=== PATIENT | female | born 1940 | race Asian ===

== ENCOUNTER → 2017-11-17 16:13 | Outpatient (CLI) | payer MEDICARE, OTHER, SELFPAY ==
--- NOTE | 2017-11-17 | DI.MRI.S_ITS ---
PROCEDURE: MR HEAD/BRAIN W/O CON INDICATIONS: HEADACHE TECHNIQUE: Noncontrast sagittal and axial FLAIR, axial and coronal T2 fast spin echo, axial T1, axial gradient echo, axial diffusion and ADC through the brain. . COMPARISON: None. FINDINGS: Image quality: Excellent. CSF spaces: Ventricles are normal in size and shape. Basal cisterns are patent. No extra-axial fluid collections. Brain: No intracranial bleeds or mass effects. Wood-white matter interface appears intact. No suspicious white matter lesions. Mild, diffuse cerebral volume loss. Mild periventricular and subcortical white matter chronic microvascular ischemic changes. Old, small left caudate head lacunar infarct. No abnormal intracranial enhancement. Diffusion weighted images show no acute ischemic insults. Brainstem appears normal. Normal intravascular flow voids are present. Skull and face: Calvarial marrow signal is normal. Orbits appear normal. There is narrowing of the upper cervical spinal canal at the level of the C1 vertebral body to 9 mm in AP diameter (15-20 mm normal) with mild mass effect on the upper cervical spinal cord.. Sinuses: Mild mucosal thickening noted in the maxillary sinuses. The mastoids are clear. IMPRESSION: 1. No acute intracranial disease process. 2. Mild, diffuse cerebral volume loss. 3. Mild periventricular and subcortical white matter chronic microvascular ischemic changes. 4. Old, small, left caudate head lacunar infarct. 5. 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 Dictated by: Luciana Clark MD, PhD on 11/17/2017 at 17:12 Approved by: Luciana Clark MD, PhD on 11/17/2017 at 17:21
== END ==
PROVIDERS: PCP Family Medicine; Visit Provider Family Medicine
DX: R51 Headache (principal); M48.01 Spinal stenosis, occipito-atlanto-axial region
CPT/HCPCS: 70552

== ENCOUNTER 2018-07-13 14:49 | Emergency (ER) | payer MEDICARE, OTHER, SELFPAY ==
[2018-07-13 14:45] VITALS: BP 156/97; PULSE 94; RESP 22; TEMP 35.8; O2SAT 100
[2018-07-13] MEDS: ONDANSETRON 4 MG/2 ML INJ IV ×2 (15:26→16:42)
--- NOTE | 2018-07-13 15:41 | ED.NAVMDI ---
HPI - Nausea/Vomiting/Diarrhea <NITZA Leyva - Last Filed: 07/13/18 22:22> General Chief complaint: Nausea/Vomiting/Diarrhea Stated complaint: Abdominal Pain Time Seen by Provider: 07/13/18 15:41 Source: patient Mode of arrival: ambulatory Limitations: no limitations History of Present Illness HPI Narrative: 77-year-old female with history of GERD that is a nonsmoker here for complaint of generalized abdominal pain and nausea vomiting with diarrhea that started this afternoon. She states that she ate lunch and then symptoms started shortly afterwards. She reports she had several episodes of vomiting. She denies any fevers or chills. No urinary symptoms. She reports that after this that she started having a couple episodes of diarrhea. She denies any contacts with similar symptoms. She denies any recent medication changes or and recent antibiotics. MD complaint: nausea, vomiting, diarrhea and abdominal pain Related Data Home Medications Medication Instructions Recorded Confirmed alendronate 35 mg PO QWEEK 07/13/18 07/13/18 amlodipine 2.5 mg PO DAILY 07/13/18 07/13/18 aspirin 81 mg PO DAILY 07/13/18 07/13/18 cephalexin 500 mg PO QID 07/13/18 07/13/18 gabapentin 600 mg PO DAILY 07/13/18 07/13/18 hydrocodone-acetaminophen 1 tab PO Q4H PRN 07/13/18 07/13/18 lidocaine 1 patch TOPICAL DAILY 07/13/18 07/13/18 omeprazole 20 mg PO DAILY 07/13/18 07/13/18 simvastatin 20 mg PO DAILY 07/13/18 07/13/18 Previous Rx's Medication Instructions Recorded ondansetron 4 mg PO BID-TID PRN #12 tab 07/13/18 Allergies Allergy/AdvReac Type Severity Reaction Status Date / Time No Known Drug Allergies Allergy Verified 07/13/18 14:52 Review of Systems <NITZA Leyva - Last Filed: 07/13/18 22:22> Constitutional Denies chills, Denies fever(s), Denies lethargy and Denies weakness Eyes Denies change in vision, Denies eye discharge, Denies irritation and Denies loss of vision ENT Ears, Nose, Mouth, and Throat: Denies change in voice, Denies neck pain and Denies sore throat Cardiovascular Denies chest pain, Denies irregular heart rhythm, Denies lightheadedness, Denies palpitations, Denies dyspnea, Denies dyspnea on exertion and Denies orthopnea Respiratory Denies cough, Denies dyspnea, Denies dyspnea on exertion and Denies wheezing Gastrointestinal Gastrointestinal: Reports abdominal pain, Reports diarrhea, Reports nausea and Reports vomiting Genitourinary Denies hematuria, Denies flank pain, Denies urinary incontinence and Denies urinary urgency Musculoskeletal Denies neck pain Integumentary/Breasts Denies pruritus, Denies erythema, Denies rash and Denies wounds Neurologic Denies confusion, Denies loss of vision and Denies weakness Psychiatric Denies anxiety, Denies confusion, Denies depression, Denies homicidal ideation and Denies suicidal ideation Endocrine Denies palpitations Hematologic/Lymphatic Denies easy bruising Allergic/Immunologic Denies wheezing Exam <NITZA Leyva - Last Filed: 07/13/18 22:22> Initial Vital Signs Initial Vital Signs: Vital Signs Temperature 96.5 F L 07/13/18 14:45 Pulse Rate 94 H 07/13/18 14:45 Respiratory Rate 22 07/13/18 14:45 Blood Pressure 156/97 H 07/13/18 14:45 Pulse Oximetry 100 07/13/18 14:45 Const General: cooperative and well developed Nutritional Appearance: well nourished Orientation: alert and awake [facility] Mouth: oral mucosae normal, oropharynx normal and moist mucous membranes Eyes Conjunctivae: conjunctivae normal Sclera: sclerae normal Pupils: PERRL EOM: EOM intact bilaterally Resp Effort & Inspection: normal respiratory effort, able to speak in complete sentences, no respiratory distress and no use of accessory muscles Auscultation: clear to auscultation bilaterally, no rales, no rhonchi and no wheezes Cardio Rate: regular rate Rhythm: regular rhythm Heart Sounds: no click, no gallops, no murmurs and no rubs GI Inspection: non-distended Palpation: soft, no hepatosplenomegaly, No guarding, No pulsatile mass and tender (Generalized tenderness) Auscultation: normal bowel sounds Skin General: no rashes or lesions noted, No jaundice and No petechiae Neuro General: alert, oriented x3, gait normal and no focal motor deficits Speech: speech normal <Radha Portillo DO - Last Filed: 07/16/18 08:56> Initial Vital Signs Initial Vital Signs: Vital Signs Temperature 96.5 F L 07/13/18 14:45 Pulse Rate 94 H 07/13/18 14:45 Respiratory Rate 22 07/13/18 14:45 Blood Pressure 156/97 H 07/13/18 14:45 Pulse Oximetry 100 07/13/18 14:45 Course <NITZA Leyva - Last Filed: 07/13/18 22:22> Orders Ordered: Discontinued Medications Hydromorphone HCl (Dilaudid) 0.5 mg IV NOW ONE Stop: 07/13/18 16:22 Last Admin: 07/13/18 16:42 Dose: 0.5 mg Sodium Chloride (Normal Saline 0.9%) 1,000 mls @ 150 mls/hr IV CONT MIKE Last Infusion: 07/13/18 19:15 Dose: 0 mls/hr Admin: 07/13/18 16:42 Dose: 150 mls/hr Ondansetron HCl (Zofran) 4 mg IV NOW ONE Stop: 07/13/18 15:23 Last Admin: 07/13/18 15:26 Dose: 4 mg Ondansetron HCl (Zofran) 4 mg IV NOW ONE Stop: 07/13/18 16:22 Last Admin: 07/13/18 16:42 Dose: 4 mg Vital Signs - 8 hr 07/13/18 14:45 07/13/18 16:39 07/13/18 17:30 Temperature 96.5 F L Pulse Rate 94 H 102 H 99 H Respiratory Rate 22 16 18 Blood Pressure 156/97 H Blood Pressure [Left Arm] 127/59 L 127/57 L Pulse Oximetry 100 96 99 07/13/18 18:00 07/13/18 19:17 Temperature 97.7 F Pulse Rate 99 H 99 H Respiratory Rate 18 22 Blood Pressure 133/78 Blood Pressure [Left Arm] 125/60 Pulse Oximetry 99 96 <Radha Portillo DO - Last Filed: 07/16/18 08:56> Orders Ordered: Discontinued Medications Hydromorphone HCl (Dilaudid) 0.5 mg IV NOW ONE Stop: 07/13/18 16:22 Last Admin: 07/13/18 16:42 Dose: 0.5 mg Sodium Chloride (Normal Saline 0.9%) 1,000 mls @ 150 mls/hr IV CONT MIKE Last Infusion: 07/13/18 19:15 Dose: 0 mls/hr Admin: 07/13/18 16:42 Dose: 150 mls/hr Ondansetron HCl (Zofran) 4 mg IV NOW ONE Stop: 07/13/18 15:23 Last Admin: 07/13/18 15:26 Dose: 4 mg Ondansetron HCl (Zofran) 4 mg IV NOW ONE Stop: 07/13/18 16:22 Last Admin: 07/13/18 16:42 Dose: 4 mg Vital Signs - 8 hr 07/13/18 14:45 07/13/18 16:39 07/13/18 17:30 Temperature 96.5 F L Pulse Rate 94 H 102 H 99 H Respiratory Rate 22 16 18 Blood Pressure 156/97 H Blood Pressure [Left Arm] 127/59 L 127/57 L Pulse Oximetry 100 96 99 07/13/18 18:00 07/13/18 19:17 Temperature 97.7 F Pulse Rate 99 H 99 H Respiratory Rate 18 22 Blood Pressure 133/78 Blood Pressure [Left Arm] 125/60 Pulse Oximetry 99 96 MDM - Nausea/Vomiting/Diarrhea <NITZA Leyva - Last Filed: 07/13/18 22:22> Lab Data Result diagrams: 07/13/18 15:15 07/13/18 15:15 Lab Results 07/13/18 07/13/18 07/13/18 Range/Units 15:15 15:15 18:15 WBC 11.6 H (4.5-11.0) X10^3/uL RBC 4.95 (4.0-5.2) X10^6/uL Hgb 15.2 (12.0-16.0) g/dL Hct 46.2 H (36-46) % MCV 93.3 (80-100) fL MCH 30.6 (26-34) PG MCHC 32.8 (30-36) % RDW 14.3 (11.6-14.8) % Plt Count 258 (150-400) X10^3/uL Neut % (Auto) 83.7 H (50-75) % Lymph % (Auto) 12.8 L (25-40) % Drew % (Auto) 2.1 L (3-14) % Eos % (Auto) 1.0 L (2-4) % Baso % (Auto) 0.4 (0-2) % Neut # (Auto) 9700 H (6533-8187) /uL Sodium 139 (137-145) mmol/L Potassium TNP Chloride 102 (98-107) mmol/L Carbon Dioxide 22 (22-32) mmol/L BUN 25 H (7-17) mg/dL Creatinine 0.70 (0.52-1.04) mg/dL Estimated GFR > 60.0 (>60) mL/min BUN/Creatinine Ratio 35.7 H (6-22) Glucose 166 H (80-110) mg/dL Calcium 9.2 (8.4-10.2) mg/dL Total Bilirubin 1.3 (0.2-1.3) mg/dL AST 35 (14-36) IU/L ALT 16 (9-52) IU/L Alkaline Phosphatase 68 (38-126) U/L Total Protein 8.6 H (6.3-8.2) g/dL Albumin 4.6 (3.5-5.0) g/dL Globulin 4.0 (1.7-4.1) g/dL Albumin/Globulin Ratio 1.2 (1.0-2.8) Lipase 56 (23-300) U/L Urine RBC 5-10/hpf H (0-5/HPF) Urine WBC 1-5/hpf (0-5/HPF) Ur Squamous Epith Cells None seen Urine Bacteria None seen (None) Ur Culture Indicated? Cult not indicated Urine Dip Bedside Urine Glucose Negative Bedside Urine Bilirubin - Negative Bedside Urine Ketone +/- 5 Urine Specific Sumner 1.010 Bedside Urine Occult Blood + Bedside Urine pH 5.0 Bedside Urine Protein - Negative Bedside Urine Urobilinogen +/- 1mg Bedside Urine Nitrite - Negative Bedside Urine Leukocytes - Negative Esterase Imaging Data CT scan - abdomen: Radiologist's impression: CT Scan Report Signed Patient: Jacquie Carlson MR#: [id number] : 1940 Acct:[id number] Age/Sex: 77 / F Date of Service: 07/13/18 Loc: ED Accession Number: [id number] Procedure: CT abdomen pelvis w con Ordering Provider: Andrew Casas PROCEDURE: CT ABDOMEN PELVIS W CON INDICATIONS: Nausea vomiting diarrhea umbilical pain TECHNIQUE: After the administration of intravenous contrast, 5 mm thick sections acquired from the diaphragm to the symphysis. 5 mm coronal and sagittal reformats were acquired. For radiation dose reduction, the following was used: automated exposure control, adjustment of mA and/or kV according to patient size. COMPARISON: None. FINDINGS: Image quality: Excellent. ABDOMEN: Lung bases: Lung bases are clear. Heart size is enlarged, no pericardial effusion. Solid organs: Liver is normal in size and enhancement. Tiny 3-4 mm well-circumscribed hypodense areas are seen in left hepatic lobe. 7 mm hypodensity is seen in posterior segment of right hepatic lobe. Gallbladder is well-distended and shows no gross abnormality. Atrophic appearing pancreas is noted with prominent pancreatic duct measures 1.3 cm in largest diameter. There is no gross intrahepatic biliary ductal dilatation. No gross common bile duct dilatation. Spleen is normal in size and enhancement. No adrenal nodules. Kidneys demonstrate normal size and enhancement, without hydronephrosis. Peritoneum and bowel: Fluid density structure with dense peripheral calcification is noted adjacent to second portion of duodenum and measures 2.6 x 1.7 cm in size which may represent duodenal diverticulum. Small to moderate size hiatal hernia is seen. There is diffuse wall thickening involving ascending colon, transverse colon and descending colon with pericolonic fat stranding. Extensive sigmoid diverticulosis is seen, no CT evidence of acute diverticulitis. No free fluid or free air. Nodes and vessels: No retroperitoneal or mesenteric adenopathy by size criteria. Aorta and inferior vena cava are normal in size. Atherosclerotic calcifications throughout are noted what is seen. Miscellaneous: No ventral hernias. PELVIS: Genitourinary: Bladder wall thickness is normal. Miscellaneous: No inguinal hernias or adenopathy. Bones: No suspicious bony lesions. Degenerative disc disease throughout lower thoracic and lumbar spine is noted. Chronic appearing superior endplate compression deformity at L2 and L3 levels are seen. Osteoarthritic changes are noted throughout the pelvis. IMPRESSION: 1. Diffuse colonic wall thickening and edema with mild pericolonic fat stranding suggestive of infectious inflammatory colitis. Sigmoid diverticulosis with no CT evidence of acute diverticulitis. No free fluid or free air. 2. Possible duodenal diverticulum with peripheral calcification as above. Small to moderate size hiatal hernia. 3. Atrophic appearing pancreas with dilated pancreatic duct. No intrahepatic or common bile duct dilatation. 4. Well-circumscribed subcentimeter hypodensities in liver as above, likely represent benign process such as hepatic cysts. Dictated by: Donavan Rodriguez M.D. on 07/13/2018 at 17:12 Approved by: Donavan Rodriguez M.D. on 07/13/2018 at 17:22 [facility] Narrative Medical decision making narrative: CBC and Chem panel were obtained were unremarkable. Urinalysis was negative for urinary tract infection. Lipase was negative. CT shows findings of acute colitis. No free air no free fluid. Diverticuli are seen however no signs of diverticulitis. Will treat as a viral illness for now. She was given ondansetron in the emergency room and is able to tolerate p.o. fluids no vomiting. Ondansetron is treated for vomiting. Plenty of fluids. [id number] Tylenol as needed for any discomfort. Follow up with primary care for the next few days for re-evaluation. For any worsening symptoms return emergency room. <Radha Portillo DO - Last Filed: 07/16/18 08:56> Lab Data Lab Results 07/13/18 07/13/18 07/13/18 Range/Units 15:15 15:15 18:15 WBC 11.6 H (4.5-11.0) X10^3/uL RBC 4.95 (4.0-5.2) X10^6/uL Hgb 15.2 (12.0-16.0) g/dL Hct 46.2 H (36-46) % MCV 93.3 (80-100) fL MCH 30.6 (26-34) PG MCHC 32.8 (30-36) % RDW 14.3 (11.6-14.8) % Plt Count 258 (150-400) X10^3/uL Neut % (Auto) 83.7 H (50-75) % Lymph % (Auto) 12.8 L (25-40) % Drew % (Auto) 2.1 L (3-14) % Eos % (Auto) 1.0 L (2-4) % Baso % (Auto) 0.4 (0-2) % Neut # (Auto) 9700 H (0093-2742) /uL Sodium 139 (137-145) mmol/L Potassium TNP Chloride 102 (98-107) mmol/L Carbon Dioxide 22 (22-32) mmol/L BUN 25 H (7-17) mg/dL Creatinine 0.70 (0.52-1.04) mg/dL Estimated GFR > 60.0 (>60) mL/min BUN/Creatinine Ratio 35.7 H (6-22) Glucose 166 H (80-110) mg/dL Calcium 9.2 (8.4-10.2) mg/dL Total Bilirubin 1.3 (0.2-1.3) mg/dL AST 35 (14-36) IU/L ALT 16 (9-52) IU/L Alkaline Phosphatase 68 (38-126) U/L Total Protein 8.6 H (6.3-8.2) g/dL Albumin 4.6 (3.5-5.0) g/dL Globulin 4.0 (1.7-4.1) g/dL Albumin/Globulin Ratio 1.2 (1.0-2.8) Lipase 56 (23-300) U/L Urine RBC 5-10/hpf H (0-5/HPF) Urine WBC 1-5/hpf (0-5/HPF) Ur Squamous Epith Cells None seen Urine Bacteria None seen (None) Ur Culture Indicated? Cult not indicated Urine Dip Bedside Urine Glucose Negative Bedside Urine Bilirubin - Negative Bedside Urine Ketone +/- 5 Urine Specific Sumner 1.010 Bedside Urine Occult Blood + Bedside Urine pH 5.0 Bedside Urine Protein - Negative Bedside Urine Urobilinogen +/- 1mg Bedside Urine Nitrite - Negative Bedside Urine Leukocytes - Negative Esterase Discharge Plan Departure Patient Disposition: Home Clinical Impression: Nausea & vomiting Discharge Date/Time: 07/13/18 19:17 Interventions: ED Discharge Assessment Last Done: 07/13/18 19:17 Instructions: DI for Viral Gastroenteritis -- Adult Activity Restrictions/Additional Instructions: Laboratory results today were unremarkable. CT shows signs of inflammation to the colon. Signs and symptoms presents as a viral illness. Use ondansetron as prescribed to help with nausea and vomiting plenty of fluids. Tylenol as needed for discomfort. Follow up with her primary care provider next few days for re-evaluation. For any worsening symptoms return emergency room. Prescriptions: New ondansetron 4 mg tablet,disintegrating 4 mg PO BID-TID PRN (Reason: nausea and vomiting) Qty: 12 RF: 0 No Action hydrocodone-acetaminophen 5-325 mg tablet 1 tab PO Q4H PRN (Reason: pain) RF: 0 amlodipine 2.5 mg tablet 2.5 mg PO DAILY RF: 0 aspirin 81 mg tablet,delayed release (DR/EC) 81 mg PO DAILY RF: 0 cephalexin 500 mg capsule 500 mg PO QID RF: 0 simvastatin 20 mg tablet 20 mg PO DAILY RF: 0 lidocaine 5 % adhesive patch,medicated 1 patch Topical DAILY RF: 0 alendronate 35 mg Tablet 35 mg PO QWEEK RF: 0 omeprazole 20 mg capsule,delayed release(DR/EC) 20 mg PO DAILY RF: 0 gabapentin 600 mg Tablet Extended Release 24 Hr 600 mg PO DAILY RF: 0 Referrals: Rui Piña MD [Primary Care Provider] - <Radha Portillo DO - Last Filed: 07/16/18 08:56> Cosign ED Attending Cosignature Attestation: I was immediately available in the department for consultation. This documentation has been reviewed. Supervised by Radha Portillo DO
--- NOTE | 2018-07-13 16:22 | DI.CT.S_ITS ---
PROCEDURE: CT ABDOMEN PELVIS W CON INDICATIONS: Nausea vomiting diarrhea umbilical pain TECHNIQUE: After the administration of intravenous contrast, 5 mm thick sections acquired from the diaphragm to the symphysis. 5 mm coronal and sagittal reformats were acquired. For radiation dose reduction, the following was used: automated exposure control, adjustment of mA and/or kV according to patient size. COMPARISON: None. FINDINGS: Image quality: Excellent. ABDOMEN: Lung bases: Lung bases are clear. Heart size is enlarged, no pericardial effusion. Solid organs: Liver is normal in size and enhancement. Tiny 3-4 mm well-circumscribed hypodense areas are seen in left hepatic lobe. 7 mm hypodensity is seen in posterior segment of right hepatic lobe. Gallbladder is well-distended and shows no gross abnormality. Atrophic appearing pancreas is noted with prominent pancreatic duct measures 1.3 cm in largest diameter. There is no gross intrahepatic biliary ductal dilatation. No gross common bile duct dilatation. Spleen is normal in size and enhancement. No adrenal nodules. Kidneys demonstrate normal size and enhancement, without hydronephrosis. Peritoneum and bowel: Fluid density structure with dense peripheral calcification is noted adjacent to second portion of duodenum and measures 2.6 x 1.7 cm in size which may represent duodenal diverticulum. Small to moderate size hiatal hernia is seen. There is diffuse wall thickening involving ascending colon, transverse colon and descending colon with pericolonic fat stranding. Extensive sigmoid diverticulosis is seen, no CT evidence of acute diverticulitis. No free fluid or free air. Nodes and vessels: No retroperitoneal or mesenteric adenopathy by size criteria. Aorta and inferior vena cava are normal in size. Atherosclerotic calcifications throughout are noted what is seen. Miscellaneous: No ventral hernias. PELVIS: Genitourinary: Bladder wall thickness is normal. Miscellaneous: No inguinal hernias or adenopathy. Bones: No suspicious bony lesions. Degenerative disc disease throughout lower thoracic and lumbar spine is noted. Chronic appearing superior endplate compression deformity at L2 and L3 levels are seen. Osteoarthritic changes are noted throughout the pelvis. IMPRESSION: 1. Diffuse colonic wall thickening and edema with mild pericolonic fat stranding suggestive of infectious inflammatory colitis. Sigmoid diverticulosis with no CT evidence of acute diverticulitis. No free fluid or free air. 2. Possible duodenal diverticulum with peripheral calcification as above. Small to moderate size hiatal hernia. 3. Atrophic appearing pancreas with dilated pancreatic duct. No intrahepatic or common bile duct dilatation. 4. Well-circumscribed subcentimeter hypodensities in liver as above, likely represent benign process such as hepatic cysts. Dictated by: Donavan Rodriguez M.D. on 07/13/2018 at 17:12 Approved by: Donavan Rodriguez M.D. on 07/13/2018 at 17:22
[2018-07-13 16:31] LABS: Add Manual Diff / Slide Review NO; Basophils Percent Auto 0.4 % (0-2); Hematocrit 46.2 % (36-46); Hemoglobin 15.2 g/dL (12.0-16.0); Lymphocytes Percent Auto 12.8 % (25-40); Mean Corpuscular HGB Conc 32.8 % (30-36); Mean Corpuscular Hemoglobin 30.6 PG (26-34); Mean Corpuscular Volume 93.3 fL (80-100); Monocytes Percent Auto 2.1 % (3-14); Neutrophils Absolute Auto 9700 /uL (1500-7000); Neutrophils Percent Auto 83.7 % (50-75); Platelet Count 258 X10^3/uL (150-400); Red Blood Cell Count 4.95 X10^6/uL (4.0-5.2); Red Cell Distribution Width 14.3 % (11.6-14.8); White Blood Cell Count 11.6 X10^3/uL (4.5-11.0)
[2018-07-13 16:38] LABS: Alanine Aminotransferase 16 IU/L (9-52); Albumin 4.6 g/dL (3.5-5.0); Albumin Globulin Ratio 1.2 (1.0-2.8); Alkaline Phosphatase 68 U/L (38-126); Aspartate Aminotransferase 35 IU/L (14-36); BUN Creatinine Ratio 35.7 (6-22); Bilirubin Total 1.3 mg/dL (0.2-1.3); Blood Urea Nitrogen 25 mg/dL (7-17); Calcium 9.2 mg/dL (8.4-10.2); Carbon Dioxide 22 mmol/L (22-32); Chloride 102 mmol/L (98-107); Estimated Glomerular Filt Rate > 60.0 mL/min (>60); Glucose 166 mg/dL (80-110); Lipase 56 U/L (23-300); Sodium 139 mmol/L (137-145); Total Protein 8.6 g/dL (6.3-8.2)
[2018-07-13 16:39] VITALS: BP 127/59; PULSE 102; RESP 16; O2SAT 96
[2018-07-13] MEDS: SODIUM CHLORIDE 0.9% 1,000 ML 150 ML IV (16:42)
[2018-07-13] MEDS: HYDROMORPHONE 1 MG INJ 0.5 MG IV (16:42)
[2018-07-13 16:46] LABS: HEMOLYSIS 158 (0-50)
[2018-07-13 17:30] VITALS: BP 127/57; PULSE 99; RESP 18; O2SAT 99
[2018-07-13 18:00] VITALS: BP 125/60; PULSE 99; RESP 18; O2SAT 99
[2018-07-13 18:31] LABS: Bacteria Urine None Seen
[2018-07-13 18:40] LABS: Culture Indicated Urine Cult Not Indicated; RBC Urine 5-10/HPF (0-5/HPF); Squamous Epithelial Cell Urine None Seen; WBC Urine 1-5/HPF (0-5/HPF)
[2018-07-13 19:17] VITALS: BP 133/78; PULSE 99; RESP 22; TEMP 36.5; O2SAT 96
== END 2018-07-13 19:17 | disposition home or self-care (01) ==
PROVIDERS: Emergency Provider Nurse Practitioner Family; PCP Family Medicine
DX: R11.2 Nausea with vomiting, unspecified (principal)
CPT/HCPCS: 36591; 74177; 80053; 81003; 81015; 83690; 85025; 96361; 96374; 96375; 99283; 99285; J1170; J2405; Q9967

== ENCOUNTER → 2023-03-15 13:06 | Outpatient (CLI) | payer MEDICARE, OTHER, SELFPAY ==
--- NOTE | 2023-03-15 13:13 | DI.RAD.S_ITS ---
PROCEDURE: XR SHOULDER LT MIN 2V INDICATIONS: LEFT SHOULDER PAIN TECHNIQUE: 3 views of the shoulder were acquired. COMPARISON: None. FINDINGS: Bones: No fractures or dislocations. No suspicious bony lesions. Visualized ribs appear intact. Mild acromioclavicular joint and moderate to severe glenohumeral joint osteoarthritis. Soft tissues: No suspicious soft tissue calcifications. Left axillary surgical clips. 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 Dictated by: Luciana Clark MD, PhD on 03/15/2023 at 13:48 Approved by: Luciana Clark MD, PhD on 03/15/2023 at 13:49
== END ==
PROVIDERS: PCP Family Medicine; Referring Provider Family Medicine; Visit Provider Family Medicine
DX: M19.012 Primary osteoarthritis, left shoulder (principal); M25.512 Pain in left shoulder
CPT/HCPCS: 73030

== ENCOUNTER → 2023-09-30 11:23 | Outpatient (CLI) | payer MEDICARE, OTHER, SELFPAY ==
[2023-09-30 13:19] LABS: Add Manual Diff / Slide Review NO; Basophils Absolute Auto 100 /uL (0-100); Basophils Percent Auto 1.6 % (0-2); Eosinophils Absolute Auto 200 /uL (0-450); Eosinophils Percent Auto 3.4 % (2-4); Hematocrit 43.1 % (36-46); Hemoglobin 14.4 g/dL (12.0-16.0); Lymphocytes Absolute Auto 2100 /uL (1100-4500); Lymphocytes Percent Auto 34.6 % (25-40); Mean Corpuscular HGB Conc 33.5 % (30-36); Mean Corpuscular Hemoglobin 31.1 PG (26-34); Monocytes Absolute Auto 500 /uL (0-900); Monocytes Percent Auto 8.7 % (3-14); Neutrophils Absolute Auto 3100 /uL (1500-7000); Neutrophils Percent Auto 51.7 % (50-75); Platelet Count 192 X10^3/uL (150-400); Red Blood Cell Count 4.64 X10^6/uL (4.0-5.2)
[2023-09-30 13:42] LABS: Albumin 3.9 g/dL (3.5-5.0); BUN Creatinine Ratio 30.6 (6-22); Blood Urea Nitrogen 19 mg/dL (7-17); Calcium 9.1 mg/dL (8.4-10.2); Carbon Dioxide 31 mmol/L (22-32); Chloride 107 mmol/L (98-107); Estimated Glomerular Filt Rate > 60 mL/min (>60); Glucose 112 mg/dL (80-110); HEMOLYSIS < 15 (0-50); Potassium 3.7 mmol/L (3.4-5.1); Sodium 139 mmol/L (137-145)
[2023-09-30 13:57] LABS: Vitamin D 25 Hydroxy (D3) 43.3 ng/mL (30.0-100.0)
[2023-09-30 15:37] LABS: Hemoglobin A1C% w Est Avg Glu 5.8 % (4.0-6.0)
== END ==
PROVIDERS: PCP Family Medicine; Referring Provider Orthopaedic Surgery Adult Reconstructive Orthopaedic Surgery; Visit Provider Orthopaedic Surgery Adult Reconstructive Orthopaedic Surgery
DX: Z01.818 Encounter for other preprocedural examination (principal); R73.9 Hyperglycemia, unspecified; E55.9 Vitamin D deficiency, unspecified; Z01.812 Encounter for preprocedural laboratory examination; R77.0 Abnormality of albumin
CPT/HCPCS: 36415; 80048; 82040; 82306; 83036; 85025; 93005

== ENCOUNTER 2023-11-16 09:51 | Day surgery (SDC) | payer MEDICARE, OTHER, SELFPAY ==
[2023-11-07 12:39] VITALS: BMI 24.3
[2023-11-16] VITALS (12 sets, daily range): BP systolic 113–148; BP diastolic 44–79; PULSE 67–92; RESP 10–24; TEMP 35.8–36.5; O2SAT 92–99; BMI 28.3
--- NOTE | 2023-11-16 | DI.RAD.S_ITS ---
PROCEDURE: XR KNEE RT 1TO2V INDICATIONS: POST OP TKA TECHNIQUE: 2 view(s) of the knee acquired. COMPARISON: Right knee radiograph on September 22, 2023. FINDINGS: Bones: Patient is status post knee joint arthroplasty. Hardware components are in expected positions. Visualized bony structures are intact. Soft tissues: Overlying postoperative changes are noted. IMPRESSION: Expected post-operative appearance of a knee arthroplasty. Dictated by: Buddy Richardson M.D. on 11/16/2023 at 15:13 Approved by: Buddy Richardson M.D. on 11/16/2023 at 15:13
[2023-11-16] MEDS: LACTATED RINGERS 1,000 ML 42 ML IV ×3 (10:34→14:33)
[2023-11-16] MEDS: ACETAMINOPHEN 325 MG TABLET 975 MG PO (11:02)
[2023-11-16] MEDS: FAMOTIDINE 20 MG/2 ML VIAL IV (11:03)
--- NOTE | 2023-11-16 11:26 | PM.PREOP ---
Pre-operative Note Interval Note History & Physical reviewed/Exam performed by Physician: Yes Changes to H&P: No
--- NOTE | 2023-11-16 13:01 | SUR.OPER ---
Supine on padded OR bed. Pillow under head, arms secured on padded armboards <90 degree abduction. Safety belt across torso. Non-operative leg secured with tape over blanket over lower leg. Operative leg secured in DeMayo/Aryan/Nathe positioner. Foam padded brace at thigh of operative leg.
[2023-11-16] MEDS: ROPIVACAINE/EPI/CLONIDINE/KET 50 ML SYRINGE INJ (13:48)
[2023-11-16] MEDS: TRANEXAMIC ACID 1,000 MG VIAL 2000 MG INJ (14:11)
--- NOTE | 2023-11-16 14:35 | P.OP_ITS ---
Operative Date/Time/Diagnoses Date of procedure: 11/16/23 Pre-op diagnosis: Right knee osteoarthritis Post-op diagnosis: same Procedure & Clinicians Procedure: Right total knee arthroplasty (51425) Same procedure as scheduled: Yes Surgeon: Shravan Hercules Sql [employer] Bi Developer: Ann Marie Ochoa Anesthesia Type: General, Peripheral nerve block and Local Operative Notes Estimated Blood Loss (mL): 250 Procedure in detail: Right Gap-Balanced Medial-Congruent Primary Total Knee Arthroplasty Implants: Breanne Persona Medial Congruent Total Knee Arthroplasty: * Size 8 narrow Cruciate Retaining Femoral Component * Size D Tibial Component with 14 x 30 stem extension * Size 14 Medial Congruent Polyethylene Insert * Unresurfaced Patella Procedure Summary: This 83-year-old female patient had a severe valgus right knee deformity. Intraoperatively she had a venous tourniquet so tourniquet was taken down after 7 minutes and I achieved hemostasis and did the rest of the procedure as a tourniquetless knee. Once the venous tourniquet had been taken down, blood loss was within the normal limits of a total knee. I noted significant medial-sided laxity preoperatively so I utilized a +0 4 degree cut on the distal femur and a +2 cut off of the defect in the lateral tibia. Following these cuts I was unable to get a 10 mm spacer block into the extension gap however I anticipated that this would continue to grow throughout the remainder of the procedure so I did not make any additional bony cuts. There was significant asymmetry between the medial and lateral sides with approximately 7? lateral tightness relative to the medial side so I performed a posterolateral release as well as an IT band release in extension while protecting the peroneal nerve. There was still residual lateral tightness following this however I anticipated that the lateral side would continue to loosen throughout the remainder of the procedure. Femoral rotation was set at 7?. I initially trialed with medial congruent inserts and did note medial laxity with the 10 mm trial however after up sizing to a 14 mm trial the medial side laxity was filled, and the lateral side was able to accommodate this without excess tightness. I therefore elected to proceed with the medial congruent knee rather than a CPS knee. I felt that a condyle fracture from cutting the box for the CPS knee or tibial sided loosening due to the increased stress from the CPS articulation on the base plate was a more likely complication than a late MCL rupture. The balance at that point in the procedure was grossly appropriate between the medial and lateral sides in extension, and had always been appropriate in flexion. I therefore implanted the concordant components. I did place a Stubby stem on the tibia given her severely poor bone quality. Procedure in Detail: This patient was seen preoperatively and evaluated for knee pain which was refractory to numerous nonoperative treatment modalities. Their pain correlated with radiographic changes demonstrating significant degeneration in the knee joint. The risks and benefits of continued nonoperative management versus operative management were discussed at length and all of the patient?s questions were answered. Additional educational materials providing further details beyond our discussion in clinic were provided via a publicly available patient ed ucation video which included the incidence of medical complications associated with total knee arthroplasty, reasons for revision following total knee arthroplasty, and patient satisfaction rates following total knee arthroplasty. That video can be accessed at [email or web address] . With this understanding of the risks inherent to the procedure, the patient elected to move forward with operative management. Following preoperative optimization, the patient was scheduled for surgery. The patient was met in the preoperative holding area the day of the procedure and all questions were answered. The patient?s nares were swabbed with betadine in order to decolonize them from MRSA. Informed consent was signed and the operative limb was marked with indelible ink.? The patient was brought back to the operating room where anesthesia was induced. The patient was transferred to the operating table and all bony prominences were padded. The operative site was prepped and draped in the usual sterile fashion. A second prep stick was utilized following drape placement. The incision was marked corresponding to the medial aspect of the tibial tubercle and the patella. Ioban was wrapped circumferentially around the knee. Prior to incision, tranexamic acid and cefazolin were administered. Templating images were display ed. A timeout procedure was performed verifying the patient?s identity, medical comorbidities, allergies, relevant medications, anesthesia type and the surgical plan. All present were in agreement. The assistance of a physician digital sales assistant was required for positioning, room setup, soft tissue retraction and wound closure. Without this assistance, the procedure would have been significantly more chal lenging and time consuming.?? The tourniquet was inflated prior to incision. I made an anterior incision over the knee, dissected through the subcutaneous tissues and identified the lateral border of the VMO. Medial and lateral soft tissue flaps were developed. A medial parapatellar arthrotomy was performed ensuring that adequate capsular tissue would remain for closure at the conclusion of the procedure. The hip was brought into extension and the medial soft tissues were released off the joint line of the tibia. Tissue overlying the distal anterior femur was released to allow for later assessment for anterior notching but left in place. A portion of the retropatellar fat pad was excised while protecting the patellar tendon. The patella was everted. The patella was not resurfaced. Osteophytes were excised and a lateral facetectomy was performed. The patella was released from its everted position.?? I flexed the knee to 90 degrees and placed retractors to allow access to the notch. An opening reamer was used to gain access to the femoral canal and an intramedullary amy was introduced into the canal. Diaphyseal fit was obtained in order to allow a distal femoral resection at 5 degrees relative to the anatomic axis, thereby aiming to achieve mechanical alignment of the eventual implant. A +0 resection was planned and assessed using an kan wing. I then made the cut using a sagittal saw. This provided additional access to the femoral notch. The ACL and PCL were excised. Retractors were placed on the lateral and medial tibia. I hyperflexed the knee while externally rotating it to sublux the tibia anteriorly. I placed a PCL retractor posteriorly and used this to provide additional anterior subluxation. The remainder of the PCL root was released. An intramedullary reamer was used in the ACL footprint to provide access to the tibial canal. An extramedullary guide was positioned to allow a resection perpendicular to the anatomic and mechanical axes of the tibia, thereby aiming to achieve mechanical alignment of the eventual implant. A +2 resection off the lateral tibia was planned and the tibial cutting jig was pinned in place. I evaluated the cut depth, varus-valgus alignment and slope of the planned tibial resection and deemed them satisfactory. I cut the tibia with a sagittal saw while using retractors to protect the MCL, patellar tendon, and posterolateral structures.? The knee was repositioned in extension and the Fuzion soft tissue balancing gauge was introduced. This demonstrated that excess lateral tightness. I brought the knee into extension, placed a lamina psychological stress evaluator between the medial femoral condyle and the medial proximal tibia and tensioned this. I used a tonsil to dissect out the posterolateral capsule. I performed a posterolateral release while protecting the popliteus using a long-handled knife. When 50 pounds of force was applied to the Fuzion device, the extension gap opened to 10 mm. I moved the knee into 90 degrees of flexion, and the Fuzion device was recalibrated by removing a 9 mm emily to allow assessment of the flexion gap. The Fuzion was placed perpendicular to the resected surface of the tibia and the resected surface of the distal femur. Fifty pounds of traction was applied to match the tension of the extension gap. This externally rotated the femur to 7 degrees. Pins were placed in the 10 mm holes. The measured resection guide was placed over the pins to allow sizing. Appropriate sizing was determined and a 4-in-1 block was placed. This was double checked using the Fuzion device to ensure that it would open to an equal distance as the extension gap when the same amount of force was applied. The Fuzion block was also used to assess flexion gap symmetry. An kan wing was used to ensure there would be no anterior notching. Retractors were placed to protect the soft tissues during resection. Captured cuts were performed with a sagittal saw for the anterior and posterior femur as well as the corresponding chamfers.? Trial components were placed and the construct was assessed. Range of motion was assessed by ensuring the knee could achieve full extension and assessing maximum passive knee flexion by elevating the femur and allowing the heel to passively fall towards the buttock. Gap symmetry was assessed by stressing the medial and lateral compartments in both extension and flexion. Laxity was assessed in both extension and flexion and the polyethylene trial was adjusted with shims as necessary. Patellar tracking was assessed with knee flexion. Once satisfied with the construct, I moved forward with implant insertion. Lug holes were drilled in the femur and the tibia was prepped ensuring appropriate sizing and rotation relative to the tibial tubercle.?? The bony ends were irrigated and cement was prepared. Portions of the anterior chamfer cut were utilized as cement restrictors in the femur and tibia where intramedullar rods had been utilized. Cement was placed on the entirety of the undersurface of both the tibial and femoral components. Cement was placed onto the dry tibia and pressurized into the cancellous bone. I impacted the tibial component into place. Cement was removed. The tibia was reduced underneath the femur and placed cement onto the dry surface of the resected femur. I placed the femoral component as well as the intended polyethylene trial. Cement was removed from around the femur. I brought the knee into extension and manually pressurized the construct by pushing on the heel while the cement dried. The knee was bathed in a dilute mixture of betadine and peroxide. A mixture of Ropivacaine, Epinephrine, Clonidine and Toradol was infiltrated throughout the soft tissues into structures including the VMO, patellar tendon, quadriceps tendon, MCL and femoral periosteum. A low adductor canal block was also performed using this mixture unless one had been placed preoperatively by anesthesia. The knee was copiously irrigated with pulse lavage. Once cement had been allowed to dry the knee was again trialed. Range of motion was assessed by ensuring the knee could achieve full extension and assessing maximum passive knee flexion by elevating the femur and allowing the heel to passively fall towards the buttock. Gap symmetry was assessed by stressing the medial and lateral compartments in both extension and flexion. Laxity was assessed in both extension and flexion and the polyethylene trial was adjusted with shims as necessary. Patellar tracking was assessed with knee flexion. The tourniquet was let down and the polyethylene trial was removed. I inspected the knee inspected for excess cement and any residual bleeding. Once hemostasis was achieved I inserted the final polyethylene and ensured appropriate engagement of the dovetail locking mechanism.?? The arthrotomy was closed with absorbable interrupted suture ensuring that this extended to the top of the arthrotomy. This was backed up with running barbed suture throughout the arthrotomy. The skin was closed with 2-0 and 3-0 sutures. Surgical glue was applied and a soft dressing was placed.?The sponge, instrument and needle counts were reported as being correct at the end of the case.??No obvious complications occurred. The patient was transferred from the operating table back to a stretcher. The patient emerged from anesthesia without difficulty and was taken to the PACU in a stable condition.? Plan for aftercare: * Weightbearing as tolerated * Mobilization as soon as the patient has recovered from anesthesia. If physical therapists are unavailable at the time the patient is ready to ambulate, then nursing staff should help patient ambulate * Patient has requested home health physical therapy. We will request the assistance of social work in setting this up * Meghan incisional wound VAC was applied. This should remain in place until the patient's follow up visit. The battery will after a week at which time the cord can be removed and it can be used as a normal dressing for the 2nd week * Aspirin 81 twice per day for DVT prophylaxis * Multimodal pain regimen with no IV opioids ordered * Anticipate discharge home most likely tomorrow. Patient is coming from home for surgery where her mobility was already limited and will be returning there. We do not plan for her to go to a [facility] facility. She has made arrangements to have support at home prior to this procedure during the postoperative period. * Follow up at [facility] in 2 weeks * Detailed postoperative instructions available at [email or web address]
--- NOTE | 2023-11-16 16:20 | OT.IPNOTE ---
Attempted OT eval and pt states in too much pain at this time to try. Pt states her legs were being squeezed and explained to her that then are compression sleeves for her circulations and able to turn it to the night setting. Nursing notified on the change. Pt a bit confused and thought she was in [place] and that she was asking whether the surgery was completed. Pt kept asking over and over if she had the surgery yet. To see the pt tomorrow.
[2023-11-16] MEDS: IBUPROFEN 600 MG TABLET PO ×2 (16:25→22:15)
[2023-11-16] MEDS: ACETAMINOPHEN 325 MG TABLET 650 MG PO ×2 (16:25→22:16)
--- NOTE | 2023-11-16 16:42 | PC.NURSE ---
Pt to room 207 via bed from PACU. Pt is sleepy but rousable and oriented x 3. Family/friends are at the bedside. Pt oriented to room, call light, bed controls, and tv controls. SCD's on and running. Pt was able to void per bedpan but unable to stand and work with OT/PT yet. Ice machine is in place and running. MARIO dsg intact with green light blinking. SCD's on and running. Pt agrees to call for assistance as needed and to not get up without help. Bed alarm on for safety.
[2023-11-16] MEDS: TRAMADOL 50 MG TABLET PO (17:17)
[2023-11-16] MEDS: OXYCODONE IR 5 MG TABLET PO ×2 (18:05→21:19)
[2023-11-16] MEDS: DOCUSATE 100 MG CAPSULE PO (20:45)
[2023-11-16] MEDS: CEFAZOLIN 2 GM/100 ML PREMIX 100 ML IV (20:45)
[2023-11-16] MEDS: ASPIRIN EC 81 MG TABLET PO (20:45)
[2023-11-17] MEDS: OXYCODONE IR 5 MG TABLET PO ×2 (01:10→08:34)
[2023-11-17] MEDS: LACTATED RINGERS 1,000 ML 100 ML IV (01:10)
[2023-11-17 01:41] VITALS: BP 117/77; PULSE 88; RESP 17; TEMP 36.7; O2SAT 98
[2023-11-17] MEDS: ACETAMINOPHEN 325 MG TABLET 650 MG PO ×4 (04:01→20:45)
[2023-11-17] MEDS: IBUPROFEN 600 MG TABLET PO ×4 (04:01→20:44)
[2023-11-17] MEDS: CEFAZOLIN 2 GM/100 ML PREMIX 100 ML IV (04:02)
[2023-11-17 04:42] LABS: Hematocrit 35.5 % (36-46); Hemoglobin 11.9 g/dL (12.0-16.0)
[2023-11-17] MEDS: TRAMADOL 50 MG TABLET PO (04:48)
[2023-11-17 04:54] VITALS: BP 138/67; PULSE 88; RESP 16; TEMP 36.7; O2SAT 98
[2023-11-17] MEDS: PANTOPRAZOLE DR 20 MG TABLET PO (05:40)
--- NOTE | 2023-11-17 07:38 | PM.PNPO.1 ---
Subjective Subjective Date Patient Seen: 11/17/23 Time Patient Seen: 07:38 Interval history: Pain is moderate to severe. No fever chills. No nausea vomiting. Exam Vital Signs (past 8 hours): - 11/17/23 01:41 11/17/23 04:54 Temperature 98.0 F 98.0 F Pulse Rate 88 88 Respiratory Rate 17 16 Blood Pressure 117/77 138/67 Pulse Oximetry 98 98 Oxygen Flow Rate 2 2 Oxygen Delivery Method Room Air Oxygen Flow Rate 2 Narrative Exam Narrative: 83-year-old male resting comfortably in bed in no apparent distress. Meghan dressing is on and functioning. Dressing is clean, dry and intact. Motor functions intact bilateral lower extremities. Sensation grossly intact to light touch bilateral lower extremities. Const General: cooperative and comfortable Nutritional Appearance: average body habitus Orientation: alert Resp Effort & Inspection: normal respiratory effort and able to speak in complete sentences Objective Labs 11/17/23 04:10 Labs: Laboratory Results - last 24 hr 11/17/23 04:10 Hgb 11.9 L Hct 35.5 L PFSH Medical History HLD (hyperlipidemia) Osteoarthritis Osteopenia Headache Vitamin D deficiency RLS (restless legs syndrome) Joint pain HTN (hypertension) Hyperglycemia Breast cancer (2007) GERD (gastroesophageal reflux disease) Surgical History Hx of bilateral mastectomy (2007) Social History household members: none Smoking Status: Never smoker alcohol intake: current Assessment & Plan Post-op Postoperative Procedures: Procedures Operation Date: 11/16/23 11:45 Actual Procedure Side Surgeon p Total Knee Arthroplasty Right Shravan Hercules MD Postoperative day: 1 Postoperative status: doing well and marginal pain control Postoperative plan: routine post-op care Postoperative plan narrative: Weight-bearing as tolerated Aspirin 81 mg b.i.d. Multimodal pain management Disposition likely home today pending physical therapy. Patient was having too much pain yesterday to participate with occupational therapy. Patient has requested home health physical therapy. Quality VTE Deep Vein Thrombosis/Pulmonary Embolism Present on Admission: No
[2023-11-17] MEDS: ATORVASTATIN 20 MG TABLET 10 MG PO (08:33)
[2023-11-17] MEDS: DOCUSATE 100 MG CAPSULE PO ×2 (08:34→20:45)
[2023-11-17] MEDS: GABAPENTIN 300 MG CAPSULE PO (08:34)
[2023-11-17] MEDS: ASPIRIN EC 81 MG TABLET PO ×2 (08:34→20:45)
[2023-11-17 09:09] VITALS: O2SAT 98
--- NOTE | 2023-11-17 09:52 | OT.IP.EVAL ---
Current Diagnoses Unilateral primary osteoarthritis, right knee (11/16/23) Surgery Performed Operation Date: 11/16/23 11:45 Actual Procedures p Total Knee Arthroplasty(Right) - Shravan Hercules MD Past Medical History (Last Reviewed 11/17/23 @ 07:39 by Gibson Contreras PA-C) Breast cancer (2007) GERD (gastroesophageal reflux disease) Headache HLD (hyperlipidemia) HTN (hypertension) Hyperglycemia Joint pain Osteoarthritis Osteopenia RLS (restless legs syndrome) Vitamin D deficiency Surgical History (Last Reviewed 11/17/23 @ 07:39 by Gibson Contreras PA-C) Hx of bilateral mastectomy (2007) Occupational Therapy Inpatient Evaluation/Re-Eval M1 PT/OT-IP Prior Functional Status Start: 11/17/23 10:38 Freq: NEEDED Status: Active Protocol: Document 11/17/23 10:39 [facility] (Rec: 11/17/23 11:12 [facility] [id number]) Medical Review Prior Functional Status Communication Kuwaiti is not the pt's primary language. Mobility and Gait Pt states used the 4ww to walk but minimally. Activities of Daily Living and IADL's Pt states had pain during ADL needs. Prior Functional Level (Other details) Pt states having a ramp built now at her place and that her friend will be staying with her . Pt requesting to do home health therapy. Social History Household Members none Number of Stairs To Enter/Railing? A ramp is being built, otherwise pt has 3 steps with bilateral rails to enter. Home Environment Standard Height Toilet,Tub/ Shower,Ramp Home Equipment Four Wheel Walker,Straight Cane,Manual Wheelchair,Shower Seat with Backrest,Hand Held Shower,Grab Bars Near Toilet, Grab Bars In Shower M2 OT-IP Current Condition Start: 11/17/23 10:38 Freq: Status: Active Protocol: Document 11/17/23 10:39 [facility] (Rec: 11/17/23 11:12 [facility] [id number]) Occupational Therapy Current Condition Current Condition Evaluation Date 11/17/23 Treatment Diagnosis S/P R TKA Diagnosis Onset Date 11/16/23 M3 OT- IP Subjective and Pain Start: 11/17/23 10:38 Freq: Status: Active Protocol: Document 11/17/23 10:39 [facility] (Rec: 11/17/23 11:12 [facility] [id number]) OT- Subjective Occupational Therapy Visit Type Type Initial Evaluation Visit Start Time 08:55 Visit Stop Time 09:52 Occupational Therapy Visit Comments Patient Comments Pt agreed to get up. Patient/Caregiver Goals To go home. OT Pain Assessment Pain When Pain Assessed During Mobility Pain Present Pain Present Pain Reported Location Right Lower Leg Intensity 6 Scale Used Numeric (0 - 10) M4 OT- IP ADL's Start: 11/17/23 10:38 Freq: Status: Active Protocol: Document 11/17/23 10:39 [facility] (Rec: 11/17/23 11:12 [facility] [id number]) OT [id number] Comments OT Self-Feeding Comments Not at meal time. OT ADL-Grooming General Evaluation Grooming Ability Standby Assistance Comments OT Grooming Comments Pt able to wash her hands after set-up. OT ADL-Oral Care Comments Oral Care Comments Not performed. OT ADL-Dressing General Eval Lower Body Dressing Ability Maximum Assistance Areas Needing Assistance Underpants/Brief,Socks Comments OT Dressing Comments Assist for socks and brief. Educated to ml her RLE first and take out last. Pt tends to lean on the bed for balance while therapist assisting to change out her brief. OT ADL-Toileting General Evaluation Toileting Ability Total Assistance Comments OT Toileting Comments Pt had purewick in place. OT ADL-Bathing Comments OT Bathing Comments Pt may possibly benefit from a tub bench. Pt states had one before but did not like the fact that water would get everywhere. M5 OT- IP IADL's Start: 11/17/23 10:38 Freq: Status: Active Protocol: Document 11/17/23 10:39 [facility] (Rec: 11/17/23 11:12 [facility] [id number]) OT-Instrumental Activities of Daily Living Deficits IADL Deficits Identified Deficits Home Safety Awareness Awareness of Need for Assistance at Home Decreased Awareness Home Safety Comments At this time pt will need asisst for all needs. Medication Management Medication Management Comments Pt will benefit from assist. Money Management Money Management Comments Pt will benefit from assist. Meal Preparation Meal Preparation Comments Pt's friend to assist. Technical Marketing Engineer Technical Marketing Engineer Comments Pt's friend to assist. M6 OT- IP Functional Cognition Start: 11/17/23 10:38 Freq: Status: Active Protocol: Document 11/17/23 10:39 [facility] (Rec: 11/17/23 11:12 [facility] [id number]) Cognitive Factors Limiting Selfcare Function Cognitive Ability Patient Orientation Name,Place,Situation Attention Span Ability Capable of Focused Attention, Capable of Sustained Attention Ability to Follow Commands Able to Follow One Step Commands with Increased Time, Able to Follow One Step Commands with Repetition Safety Awareness Underestimates Need for Assistance Cognitive Comments Cognitive Assessment Comments Pt needing step by step commands, partially maybe due to language barrier and at times seems to have difficulty to hear. Pt needing lots of visual and vc to be able to follow commands. Pt is also a bit impulsive and has decreased safety awareness. OT- Vision and Hearing OT- Vision Assessment Vision Assessment Comments Questionable hard of hearing or ability to understand due to pt's language barrier and just having surgery. M7 OT- IP Mobility and Balance Start: 11/17/23 10:38 Freq: Status: Active Protocol: Document 11/17/23 10:39 [facility] (Rec: 11/17/23 11:12 [facility] [id number]) OT- Bed Mobility Assessment Supine to Sit Supine to Sit Assist Standby Assistance Sit to Supine Sit to Supine Assist Standby Assistance Scooting Scooting to Edge of Bed Contact Guard Assistance OT-Transfer Assessment Sit to and From Stand Sit to and from Stand Moderate Assistance Transfers Transfer Ability Moderate Assistance,Maximum Assistance,1 Person Assistance Technique Transfer Destination Bed,Chair Transfer Technique Stand Step Pivot Devices Transfer Assistive Devices Gait Belt,Front Wheeled Walker Comments Mobility Comments Able to go over leg exercises with pt. Pt able to move her RLE on and off the bed to the right. Pt normally gets out on the left side. CGA to scoot to the edge of the bed. MODA x1 to stand and having to brace the back of her legs on the bed to assist. Pt states normally uses the bed to assist to stand. Pt also states has to use a step to get into bed as well.Once on the feet, assist for balance, assist to guide the FWW - MAX AX 1 to the recliner with the fww. Pt tends to try to grab the armrests of the recliner. OT- Balance Assessment Sitting Balance and Reactions Static Sitting Balance Ability Good Dynamic Sitting Balance Ability Fair Standing Balance and Reactions Static Standing Balance Ability Poor Dynamic Standing Balance Ability Poor M8 OT- IP Objective Assessments Start: 11/17/23 10:38 Freq: Status: Active Protocol: Document 11/17/23 10:39 [facility] (Rec: 11/17/23 11:12 [facility] [id number]) OT Gross Range of Motion Upper Extremity Range of Motion Assessment Within Functional Limits OT Strength Upper Extremity Strength Assessment Within Functional Limits M9 OT- IP Assessment and Plan Start: 11/17/23 10:38 Freq: Status: Active Protocol: Document 11/17/23 10:39 [facility] (Rec: 11/17/23 11:12 [facility] [id number]) OT Summary Assessment and Plan Potential Rehabilitation Potential Good Analytic Complexity at Evaluation Low Summary OT Impairments Pain,Strength,Balance, Functional Cognition, Functional Mobility,Grooming, Dressing,Toileting,Bathing, Toilet Transfers,Shower Transfers,Activity Tolerance Progress Towards Goals Slow Progress due to Pain,Slow Progress due to Activity Tolerance,Slow Progress due to Cognition Assessment Summary Pt low complexity and main barriers are pain, decreased balance and having to use the bed for stability to assist to stand. Pt not able to molded goods spot picker her RLE for the transfer and tends to slide her feet at this time. Able to suggest and try equipment needs of woodworking belt sander and sock aid. Pt will also benefit from a bedside commode as she is incontinent. At this time pt would benefit from skilled rehab pending progress hopefully pt to go home with 24/7 assist and home health. Goals Self-Feeding Goal Independent Grooming Goal Independent Dressing Goal Independent Toileting Goal Independent Bathing Goal Standby Assistance Toilet Transfer Goal Independent Shower Transfer Goal Independent Days to Meet Goals 20 Frequency of Treatment Frequency Of Treatment Once a Day Treatment Plan OT Treatment Plan ADL Training,Functional Cognition Training,Functional Mobility,Patient/Family Education,Discharge Planning Discharge Recommendations OT Discharge Recommendations Home with 24/7 Assist Available,Home Health,SNF Rehab,Home vs SNF Home Equipment Needs BSC, woodworking belt sander, sock aid Transportation Needs at Discharge Private Vehicle,Wheelchair/ Cabulance
[2023-11-17 10:20] VITALS: BP 110/53; PULSE 81; RESP 16; TEMP 36.7; O2SAT 96
--- NOTE | 2023-11-17 10:46 | CM.DANOTE ---
DCP Assessment Note Pt is a 83yo female, resident of [place], is here s/p R TKA. Pt lives in an , alone. Pt's Primary Care Provider is Dr. Rui Piña and insurance is Medicare and [employer]. Reviewed chart and team rounds for pt's medical status and initial discharge needs. DCP met w/patient at bedside; introduced self and role. Present in the room is [facility] . Pt consented to continue with assessment with pianist in the room; pt reports the music has been extremely helpful, Since the music started, my pain is 99% gone! Pt was found in bed, alert and oriented, cooperative with assessment. DCP was able to speak with patient in her preferred language of Tagalog. Pt confirmed living situation and having good support in friends/neighbors who she esteems as close family friends. She has one friend, Peggy, who is a nurse and plans on staying with her for her first few nights back. Pt reports her friends are having a ramp to her front door installed today to make it easier to get into the house via wheelchair/walker. Pt explained preference for returning home when medically cleared, Pt agreeable to working with therapies for evaluations. Pt inquired about having a caregiver in her home 3x a week or possibly getting her friends being her paid caregivers through her insurance. Pt stated she would not be able to pay privately at this time due to limited resources. DCP will discuss HH referral with pt and therapies, if appropriate. Plan: Awaiting PT/OT evaluations and recommendation for evolving discharge plans. CM team will plan to follow clinical course closely for assessment of need and coordination of discharge plan. GERMAINE Gómez Discharge Planning/Care Management CM Discharge Assessment Start: 11/17/23 10:43 Freq: Status: Active Protocol: Document 11/17/23 10:43 MW (Rec: 11/17/23 10:46 MW [id number]) Discharge Planning Assessment Assigned Contract Administration Specialist ELOTN Baptiste/Assigned Designee Name Peggy, Friend Contact Information [phone] Advance Directives? No History Provided By Patient,Medical Record Expected Length of Stay 2 Has Patient been admitted in last 30 No days? Prior Living Arrangements Mobile home Household Members none Type of transporation used prior to Public Transportation admit Comment Pt utilizes [employer] [place] rely on friends/neighbors. Independent with ADL's Yes Is patient alert and oriented? Yes Needs Assistance With Home Chores / Shopping Caregiver for Another No DME Already Rented / Owned Wheelchair,FWW / Walker,Cane Patient/Family Preference Home with Home Health Barriers to Discharge No Discharge Plan Home with Home Health Referrals Initiated Home Health SNF/HH Preference None reported. Whiteboard Updated in Patient Room with Yes name and ext. # of Contract Administration Specialist Comment [phone] Please Provide Date Initial DC 11/17/23 Assessment Was Performed Next Review Type Continued Stay Review
--- NOTE | 2023-11-17 12:26 | PT.IIE ---
Current Diagnoses Unilateral primary osteoarthritis, right knee (11/16/23) Surgery Performed Operation Date: 11/16/23 11:45 Actual Procedures p Total Knee Arthroplasty(Right) - Shravan Hercules MD Surgical History (Last Reviewed 11/17/23 @ 07:39 by Gibson Contreras PA-C) Hx of bilateral mastectomy (2007) Medical History (Last Reviewed 11/17/23 @ 07:39 by Gibson Contreras PA-C) Breast cancer (2007) GERD (gastroesophageal reflux disease) Headache HLD (hyperlipidemia) HTN (hypertension) Hyperglycemia Joint pain Osteoarthritis Osteopenia RLS (restless legs syndrome) Vitamin D deficiency Physical Therapy Inpatient Evaluation/Re-Eval M1 PT/OT-IP Prior Functional Status Start: 11/17/23 10:38 Freq: NEEDED Status: Active Protocol: Document 11/17/23 12:26 [facility] (Rec: 11/17/23 15:20 [facility] [id number]) Medical Review Prior Functional Status Medical History Reviewed Yes Diet/Fluid Consistency Regular Communication Romansh is not the pt's primary language. Mobility and Gait Pt states used the 4ww to walk but minimally. Activities of Daily Living and IADL's Pt states had pain during ADL needs. Prior Functional Level (Other details) Pt states having a ramp built now at her place and that her friend franck be staying with her . Pt requesting to do home health therapy. Her Son is back in [facility]. Social History Household Members none Living Arrangements Mobile home Number of Floors (Floors) One Floor Number of Stairs To Enter/Railing? ramp, otherwise 3 steps with bilateral rails Home Environment Standard Height Toilet Home Equipment Front Wheel Walker,Manual Wheelchair,Raised Toilet Seat w/Armrests,Shower Seat with Backrest,Hand Held Shower Employment Status Retired Additional Social History Comment A friend plans to stay with her at discharge She does not want to go to SNF M2 PT-IP Current Condition Start: 11/17/23 15:04 Freq: NEEDED Status: Active Protocol: Document 11/17/23 12:26 [facility] (Rec: 11/17/23 15:20 [facility] [id number]) Physical Therapy Current Condition Current Condition Evaluation Date 11/17/23 Treatment Diagnosis right total knee arthroplasty, impaired gait Onset Date 11/16/23 M3 PT-IP Subjective Start: 11/17/23 15:04 Freq: NEEDED Status: Active Protocol: Document 11/17/23 12:26 DL (Rec: 11/17/23 15:20 REPLACED BY [facility] [id number]) Subjective Physical Therapy Visit Type Type Initial Evaluation Visit Start Time 11:45 Visit Stop Time 12:26 Notes 41 minutes Number of OBSERVER [employer]LECTR[employer]OSPECTING Visits 0 Physical Therapy Visit Comments Patient Comments She reports her knee is sore. Patient Goals Discharge home with friend Therapy Pain Assessment Pain When Pain Assessed During Mobility Pain Present Pain Present Pain Reported Location Right Lower Leg Intensity 5 Scale Used Numeric (0 - 10) Description Aching,Tender,With Movement Pain Behaviors Facial Grimacing,Guarding Pain Management Techniques Apply Cold,Re-positioning, Timing of Activity with Medications M4 PT-IP Mobility and Gait Start: 11/17/23 15:04 Freq: NEEDED Status: Active Protocol: Document 11/17/23 12:26 DL (Rec: 11/17/23 15:20 REPLACED BY [facility] [id number]) PT-Bed Mobility Assessment Supine to Sit Supine to Sit Standby Assistance Sit to Supine Sit to Supine Minimal Assistance Scooting Scooting to Edge of Bed Independent PT-Transfer Assessment Sit to and From Stand Sit to and from Stand Contact Guard Assistance, Minimal Assistance,Use of Upper Extremities Equipment Transfer Assistive Device Gait Belt,4 Wheeled Walker Transfers Transfer Destination Bed,Chair Transfer Technique Stand Step Pivot Transfer Ability Level of Assist Contact Guard Assistance, Minimal Assistance,Use of Upper Extremities Comments Mobility Comments She needs reminders to push up with her UE's for sit to stand. She tends to melendez when backing up to the chair before sitting and needs reminders to fully reach the chair and control her descent. Gait Assessment Gait Gait Assistance Required: Contact Guard Assist,Minimum Assistance Distance (Feet) 10 Assistive Devices Assistive Device Gait Belt,4 Wheeled Walker Gait Deviations General Gait Pattern Antalgic,Decreased Stride Length,Flexed Trunk,Step-to Gait Factors Limiting Gait Function Factors Limiting Gait Function Decreased Activity Tolerance, Decreased Sensation,Decreased Strength,Limited Range of Motion,Pain,Poor Balance Comments Gait Comments She pushes the 4WW too far in front of her. Educated pt to keep 4WW close and take small steps slowly. She was able to increase the safety of her gait pattern with training. Stair Climbing Assessment Comments Stair Climbing Comments will have ramp to enter house PT-Balance Assessment Sitting Balance and Reactions Static Sitting Balance Ability Good Dynamic Sitting Balance Ability Good Standing Balance and Reactions Static Standing Balance Ability Fair Dynamic Standing Balance Ability Fair Device Used FWW M5 PT-IP Objective Assessments Start: 11/17/23 15:04 Freq: NEEDED Status: Active Protocol: Document 11/17/23 12:26 D[facility] (Rec: 11/17/23 15:20 DL [id number]) Orientation Orientation/Cognition Level of Alertness Alert Orientation Name,Age,Birthday,Month,Date, Year,Day of Week,Place, Situation Language Function Ability Romansh as Second Language Safety Awareness Decreased Safety Awareness Comments she needs repetition of new information, impulsive, needs reminders to slow down Gross Range of Motion Upper Extremity ROM Assessment Within Functional Limits Lower Extremity ROM Assessment Right Impaired Impairments knee 0-90 degrees actively Strength Upper Extremity Strength Assessment Within Functional Limits Lower Extremity Strength Assessment Right Impaired Hip extensor lag and difficulty with straight leg raise Knee ext sitting 3-/5, flex 4-/5 Ankle DF 5/5 Coordination Assessment Gross Coordination Gross Coordination WNL Sensation Assessment Sensation Gross Sensation Right LE Impaired Sensation Description Numbness Comments Sensation Comments patient reports her knee area is numb since surgery Muscle Tone Muscle Tone WNL Yes M6 PT-IP Treatment Start: 11/17/23 15:04 Freq: NEEDED Status: Active Protocol: Document 11/17/23 12:26 D[facility] (Rec: 11/17/23 15:20 REPLACED BY [facility] [id number]) Physical Therapy Treatment Exercises Exercises Ankle Pumps,Gluteal Sets,Quad Sets,Heel Slides,Straight Leg Raises,Short Arc Quads,Passive Knee Extension Hang,Seated Knee Flexion/Extension M7 PT-IP Assessment and Plan Start: 11/17/23 15:04 Freq: NEEDED Status: Active Protocol: Document 11/17/23 12:26 [facility] (Rec: 11/17/23 15:20 REPLACED BY [facility] [id number]) PT Summary Assessment and Plan Potential Rehabilitation Potential Good Status of Condition at Evaluation Evolving Summary Impairments Pain,ROM,Strength,Balance, Sensation,Bed Mobility, Transfers,Gait,Activity Tolerance Progress Towards Goals Slow Progress due to Activity Tolerance Assessment Summary Jacquie is progressing slowly post-op day one of right TKA. She needs a lot of education for safety to decrease her fall risks and to use the 4WW safely. She shows slow but good progress with therapy education and training. Anticipate she will be able to discharge home with help from her friend but she is not ready yet today. Pt left sitting up on the recliner for lunch. She agrees to have staff assist for all mobility/ gait. Goals Bed Mobility Goal Independent Transfer Goal Independent,Front Wheeled Walker Gait Goal Independent,Front Wheel Walker Gait Distance 150 feet Days to Meet Goals 2 Frequency of Treatment Frequency Of Treatment Twice a Day Treatment Plan Physical Therapy Treatment Plan Bed Mobility Training,Transfer Training,Gait Training, Therapeutic Exercise,Balance Retraining,Post Op Education, Discharge Planning,Hot or Cold Pack,Neuromuscular Re-ed Other Recommendations and Next Treatment reinforce safety to decrease Focus her fall risks Precautions Other Precautions fall risk Weight Bearing Status Weight Bearing Status Weight Bear as Tolerated Allowed Weight Bearing Amount (enter % right LE or #) (%) Recommendations To Nursing Amount of Assist Needed 1 Person Assist Discharge Recommendations PT Discharge Recommendations Home with 24/01 Assist Available,Home Health Other Discharge Recommendations not ready to go home today Transportation Needs at Discharge Private Vehicle
--- NOTE | 2023-11-17 15:03 | PT.IPTN ---
Current Diagnoses Unilateral primary osteoarthritis, right knee (11/16/23) Surgery Performed Operation Date: 11/16/23 11:45 Actual Procedures p Total Knee Arthroplasty(Right) - Shravan Hercules MD Physical Therapy Treatment Note M2 PT-IP Current Condition Start: 11/17/23 15:04 Freq: NEEDED Status: Active Protocol: Document 11/17/23 12:26 DLM (Rec: 11/17/23 15:20 DLM [id number]) Physical Therapy Current Condition Current Condition Evaluation Date 11/17/23 Treatment Diagnosis right total knee arthroplasty, impaired gait Onset Date 11/16/23 M3 PT-IP Subjective Start: 11/17/23 15:04 Freq: NEEDED Status: Active Protocol: Document 11/17/23 15:03 DLM (Rec: 11/17/23 15:31 DL [id number]) Subjective Physical Therapy Visit Type Type Treatment Note Visit Start Time 14:20 Visit Stop Time 15:03 Notes 43 minutes Number of RETORT OPERATOR Visits 0 Physical Therapy Visit Comments Patient Comments She reports her friend is close to her age and is limited in how much physical help she can provide to the patient Patient Goals Discharge home with her friend Therapy Pain Assessment Pain When Pain Assessed During Mobility Pain Present Pain Present Pain Reported Location Right Lower Leg Intensity 6 Scale Used Numeric (0 - 10) Description Aching,Tender,With Movement Pain Behaviors Facial Grimacing,Guarding Pain Management Techniques Apply Cold,Re-positioning, Timing of Activity with Medications M4 PT-IP Mobility and Gait Start: 11/17/23 15:04 Freq: NEEDED Status: Active Protocol: Document 11/17/23 15:03 DLM (Rec: 11/17/23 15:31 DL [id number]) PT-Bed Mobility Assessment Rolling Type of Rolling Roll to Left Level of Assist Independent Supine to Sit Supine to Sit Independent Sit to Supine Sit to Supine Independent Scooting Scooting to Edge of Bed Independent PT-Transfer Assessment Sit to and From Stand Sit to and from Stand Contact Guard Assistance,Use of Upper Extremities Equipment Transfer Assistive Device Gait Belt,4 Wheeled Walker Transfers Transfer Destination Bed Transfer Technique Stand Step Pivot Transfer Ability Level of Assist Contact Guard Assistance, Minimal Assistance,Use of Upper Extremities Comments Mobility Comments She needs reminders to push up with her UE's for sit to stand. She tends to melendez when backing up to the chair before sitting and needs reminders to fully reach the chair and control her descent. She shows improved ability to get her right LE in/out of bed. Gait Assessment Gait Gait Assistance Required: Contact Guard Assist,Minimum Assistance Distance (Feet) 75 Assistive Devices Assistive Device Gait Belt,4 Wheeled Walker Gait Deviations General Gait Pattern Antalgic,Decreased Stride Length,Flexed Trunk,Step-to Gait Factors Limiting Gait Function Factors Limiting Gait Function Decreased Activity Tolerance, Decreased Sensation,Decreased Strength,Limited Range of Motion,Pain,Poor Balance Comments Gait Comments She pushes the 4WW too far in front of her. Educated pt to keep 4WW close and take small steps slowly. She was able to increase the safety of her gait pattern with training. She gets short of breath ambulating and needs standing rest breaks to complete this distance. Stair Climbing Assessment Comments Stair Climbing Comments will have ramp to enter house PT-Balance Assessment Sitting Balance and Reactions Static Sitting Balance Ability Good Dynamic Sitting Balance Ability Good Standing Balance and Reactions Static Standing Balance Ability Good Dynamic Standing Balance Ability Fair Device Used FWW M5 PT-IP Objective Assessments Start: 11/17/23 15:04 Freq: NEEDED Status: Active Protocol: Document 11/17/23 12:26 DLM (Rec: 11/17/23 15:20 DL [id number]) Orientation Orientation/Cognition Level of Alertness Alert Orientation Name,Age,Birthday,Month,Date, Year,Day of Week,Place, Situation Language Function Ability Hungarian as Second Language Safety Awareness Decreased Safety Awareness Comments she needs repetition of new information, impulsive, needs reminders to slow down Gross Range of Motion Upper Extremity ROM Assessment Within Functional Limits Lower Extremity ROM Assessment Right Impaired Impairments knee 0-90 degrees actively Strength Upper Extremity Strength Assessment Within Functional Limits Lower Extremity Strength Assessment Right Impaired Hip extensor lag and difficulty with straight leg raise Knee ext sitting 3-/5, flex 4-/5 Ankle DF 5/5 Coordination Assessment Gross Coordination Gross Coordination WNL Sensation Assessment Sensation Gross Sensation Right LE Impaired Sensation Description Numbness Comments Sensation Comments patient reports her knee area is numb since surgery Muscle Tone Muscle Tone WNL Yes M6 PT-IP Treatment Start: 11/17/23 15:04 Freq: NEEDED Status: Active Protocol: Document 11/17/23 15:03 DLM (Rec: 11/17/23 15:31 DL [id number]) Physical Therapy Treatment Exercises Exercises Ankle Pumps,Gluteal Sets,Quad Sets,Heel Slides,Straight Leg Raises,Short Arc Quads,Passive Knee Extension Hang,Seated Knee Flexion/Extension Education Education Provided Weight Bearing Status,Post-Op Packet,Safety M7 PT-IP Assessment and Plan Start: 11/17/23 15:04 Freq: NEEDED Status: Active Protocol: Document 11/17/23 15:03 DLM (Rec: 11/17/23 15:31 DLM [id number]) PT Summary Assessment and Plan Summary Impairments Pain,ROM,Strength,Balance, Sensation,Bed Mobility, Transfers,Gait,Activity Tolerance Progress Towards Goals Slow Progress due to Activity Tolerance Assessment Summary Jacquie continues to slowly progress in therapy. She still needs a lot of safety cues but is tolerating increased distances of gait with the 4WW . She is tolerating ROM exercises well. She is open to education and training during therpay sessions. She is not ready for discharge today but anticipate she will be able to discharge tomorrow. Her friend has not been present today to participate in caregiver training. Goals Bed Mobility Goal Independent Transfer Goal Independent,Front Wheeled Walker Gait Goal Independent,Front Wheel Walker Gait Distance 150 feet Days to Meet Goals 2 Frequency of Treatment Frequency Of Treatment Twice a Day Treatment Plan Physical Therapy Treatment Plan Bed Mobility Training,Transfer Training,Gait Training, Therapeutic Exercise,Balance Retraining,Post Op Education, Discharge Planning,Hot or Cold Pack,Neuromuscular Re-ed Other Recommendations and Next Treatment reinforce fall risk education Focus Precautions Other Precautions fall risk needs reminders to slow down Weight Bearing Status Weight Bearing Status Weight Bear as Tolerated Recommendations To Nursing Amount of Assist Needed 1 Person Assist Discharge Recommendations PT Discharge Recommendations Home with 24/01 Assist Available,Home Health Other Discharge Recommendations her friend plans to stay with her to help She is not ready for discharge today but anticipate she will be ready tomorrow Equipment Needed for Home Before she has her 4WW in her room Discharge Transportation Needs at Discharge Private Vehicle
--- NOTE | 2023-11-17 15:20 | PM.PN.1 ---
Subjective Subjective Interval history: Patient seen this afternoon. Resting comfortably in bed. No acute distress. Pain well controlled. Flexing and extending hallux and ankle. Dressing clean dry and intact. Still working with physical therapy on making progress towards discharge home. We will have her remain in the hospital for another night to continue working on her mobilization with plans for discharge home hopefully tomorrow morning. Exam Vital Signs (past 8 hours): - 11/17/23 09:09 11/17/23 10:20 Temperature 98.1 F Pulse Rate 81 Respiratory Rate 16 Blood Pressure 110/53 L Pulse Oximetry 98 96 Oxygen Delivery Method Room Air Oxygen Flow Rate 2 Oxygen Delivery Method Room Air Oxygen Flow Rate 2 Objective Labs 11/17/23 04:10 Labs: Laboratory Results - last 24 hr 11/17/23 04:10 Hgb 11.9 L Hct 35.5 L PFSH Medical History HLD (hyperlipidemia) Osteoarthritis Osteopenia Headache Vitamin D deficiency RLS (restless legs syndrome) Joint pain HTN (hypertension) Hyperglycemia Breast cancer (2007) GERD (gastroesophageal reflux disease) Surgical History Hx of bilateral mastectomy (2007) Social History household members: none Smoking Status: Never smoker alcohol intake: current Quality VTE Deep Vein Thrombosis/Pulmonary Embolism Present on Admission: No
[2023-11-17 19:40] VITALS: BP 161/73; PULSE 85; RESP 16; TEMP 36.7; O2SAT 93
[2023-11-17 20:00] VITALS: BP 146/88; PULSE 80; RESP 16; TEMP 36.4; O2SAT 96
[2023-11-18] MEDS: ACETAMINOPHEN 325 MG TABLET 650 MG PO ×2 (05:08→10:13)
[2023-11-18] MEDS: IBUPROFEN 600 MG TABLET PO ×2 (05:08→10:13)
[2023-11-18] MEDS: PANTOPRAZOLE DR 20 MG TABLET PO (05:10)
[2023-11-18 08:00] VITALS: BP 150/58; PULSE 83; RESP 16; TEMP 36.2; O2SAT 96
--- NOTE | 2023-11-18 08:16 | CM.DPC ---
DCP Cont. Reviewed EMR and team rounds for status updates. Pt has been cleared for d/c home today, her family will transport her. Sent referral and orders to [facility], per pt/family's preference. Called family to update on plan. No further DCP needs identified at this time.
[2023-11-18] MEDS: ATORVASTATIN 20 MG TABLET 10 MG PO (09:14)
[2023-11-18] MEDS: DOCUSATE 100 MG CAPSULE PO (09:14)
[2023-11-18] MEDS: GABAPENTIN 300 MG CAPSULE PO (09:14)
[2023-11-18] MEDS: ASPIRIN EC 81 MG TABLET PO (09:15)
--- NOTE | 2023-11-18 10:25 | PT.IPTN ---
Current Diagnoses Unilateral primary osteoarthritis, right knee (11/16/23) Surgery Performed Operation Date: 11/16/23 11:45 Actual Procedures p Total Knee Arthroplasty(Right) - Shravan Hercules MD Physical Therapy Treatment Note M2 PT-IP Current Condition Start: 11/17/23 15:04 Freq: NEEDED Status: Active Protocol: Document 11/17/23 12:26 DLM (Rec: 11/17/23 15:20 DLM [id number]) Physical Therapy Current Condition Current Condition Evaluation Date 11/17/23 Treatment Diagnosis right total knee arthroplasty, impaired gait Onset Date 11/16/23 M3 PT-IP Subjective Start: 11/17/23 15:04 Freq: NEEDED Status: Active Protocol: Document 11/18/23 10:49 TS (Rec: 11/18/23 11:01 TS [id number]) Subjective Physical Therapy Visit Type Type Treatment Note Visit Start Time 10:25 Visit Stop Time 10:48 Number of PRINCIPAL SOLUTIONS ARCHITECT Visits 1 Physical Therapy Visit Comments Patient Comments Pt found resting in bed, reports more pain today, pt is agreeable to PT. Patient Goals Discharge home with her friend Therapy Pain Assessment Pain When Pain Assessed During Mobility Pain Present Pain Present Pain Reported Location Right Lower Leg Intensity 8 Scale Used Numeric (0 - 10) Pain Management Techniques Apply Cold,Re-positioning, Timing of Activity with Medications M4 PT-IP Mobility and Gait Start: 11/17/23 15:04 Freq: NEEDED Status: Active Protocol: Document 11/18/23 10:49 TS (Rec: 11/18/23 11:01 TS [id number]) PT-Bed Mobility Assessment Supine to Sit Supine to Sit Standby Assistance Scooting Scooting to Edge of Bed Standby Assistance PT-Transfer Assessment Sit to and From Stand Sit to and from Stand Minimal Assistance,1 Person Assistance,Use of Upper Extremities Equipment Transfer Assistive Device Front Wheeled Walker Comments Mobility Comments Supine to sit with HOB elevated SBA, pt required gati belt to assist RLE to EOB. STS x2 from bed Rajni with FWW, pt places no weight on RLE and has difficulty with static standing. Pt agreed to try to ambulte. She ambulated ~5' Rajni with FWW. pt hops on L leg and TTWB on RLE due to pain, pt is unsteady. Pt fatigued quickly with gait and required chair placed behind her. Pt performed heel slides with belt and quad sets. Pt was left in chair, all needs met. Gait Assessment Gait Gait Assistance Required: Minimum Assistance,1 Person Assist Distance (Feet) 5 Assistive Devices Assistive Device Gait Belt,Front Wheeled Walker Gait Deviations General Gait Pattern Antalgic,Decreased Stride Length,Flexed Trunk,Step-to Gait Factors Limiting Gait Function Factors Limiting Gait Function Decreased Activity Tolerance, Decreased Sensation,Decreased Strength,Limited Range of Motion,Pain,Poor Balance Comments Gait Comments See mobility comments Stair Climbing Assessment Comments Stair Climbing Comments will have ramp to enter house PT-Balance Assessment Sitting Balance and Reactions Static Sitting Balance Ability Good Dynamic Sitting Balance Ability Good Standing Balance and Reactions Static Standing Balance Ability Good Dynamic Standing Balance Ability Fair Device Used FWW M5 PT-IP Objective Assessments Start: 11/17/23 15:04 Freq: NEEDED Status: Active Protocol: Document 11/17/23 12:26 DLM (Rec: 11/17/23 15:20 DL [id number]) Orientation Orientation/Cognition Level of Alertness Alert Orientation Name,Age,Birthday,Month,Date, Year,Day of Week,Place, Situation Language Function Ability Pakistani as Second Language Safety Awareness Decreased Safety Awareness Comments she needs repetition of new information, impulsive, needs reminders to slow down Gross Range of Motion Upper Extremity ROM Assessment Within Functional Limits Lower Extremity ROM Assessment Right Impaired Impairments knee 0-90 degrees actively Strength Upper Extremity Strength Assessment Within Functional Limits Lower Extremity Strength Assessment Right Impaired Hip extensor lag and difficulty with straight leg raise Knee ext sitting 3-/5, flex 4-/5 Ankle DF 5/5 Coordination Assessment Gross Coordination Gross Coordination WNL Sensation Assessment Sensation Gross Sensation Right LE Impaired Sensation Description Numbness Comments Sensation Comments patient reports her knee area is numb since surgery Muscle Tone Muscle Tone WNL Yes M6 PT-IP Treatment Start: 11/17/23 15:04 Freq: NEEDED Status: Active Protocol: Document 11/18/23 10:49 TS (Rec: 11/18/23 11:01 [id number]) Physical Therapy Treatment Exercises Exercises Quad Sets,Heel Slides Education Education Provided Weight Bearing Status,Post-Op Packet,Safety M7 PT-IP Assessment and Plan Start: 11/17/23 15:04 Freq: NEEDED Status: Active Protocol: Document 11/18/23 10:49 TS (Rec: 11/18/23 11:01 [id number]) PT Summary Assessment and Plan Potential Rehabilitation Potential Fair Summary Impairments Pain,ROM,Strength,Balance, Sensation,Bed Mobility, Transfers,Gait,Activity Tolerance Progress Towards Goals Slow Progress due to Pain,Slow Progress due to Activity Tolerance Assessment Summary Jacquie is making slow progress with her mobility due to increase in pain and poor activity. She is SBA for bed mobility with use of gait belt to assist RLE. She is having increased difficulty with STS from bed due to pain. She ambulated ~5' before pain was too much for her and required to sit down. She is ambulating on LLE only and TTWB on RLE. PT will setup caregiver training for this afternoon. PT is recommeding home with 24 /7 assist and HHPT. Goals Bed Mobility Goal Independent Transfer Goal Independent,Front Wheeled Walker Gait Goal Independent,Front Wheel Walker Gait Distance 150 feet Days to Meet Goals 2 Frequency of Treatment Frequency Of Treatment Twice a Day Treatment Plan Physical Therapy Treatment Plan Bed Mobility Training,Transfer Training,Gait Training, Therapeutic Exercise,Balance Retraining,Post Op Education, Discharge Planning,Hot or Cold Pack,Neuromuscular Re-ed Other Recommendations and Next Treatment reinforce fall risk education Focus Precautions Other Precautions fall risk needs reminders to slow down Weight Bearing Status Weight Bearing Status Weight Bear as Tolerated Recommendations To Nursing Amount of Assist Needed 1 Person Assist Discharge Recommendations PT Discharge Recommendations Home with 24/7 Assist Available,Home Health Other Discharge Recommendations Will conduct caregiver training due to pt's increase need for assistance this morning. Transportation Needs at Discharge Private Vehicle
--- NOTE | 2023-11-18 10:25 | PM.DS.1 ---
History of Present Illness History of Present Illness Chief complaint: Right TKA *OPB* Narrative: Jacquie is an 83-year-old female who is postop day #2 status post right total knee arthroplasty by Dr. Hercules. Today patient states she is doing well, pain slightly improved from yesterday. Well controlled with oral oxycodone. Does not have a postop pain medications yet. She reports significant pain relief with using ice on the knee. Patient reports she does live alone has 2 lady friends who will be staying with her for the 1st few weeks postoperatively. No specific complaints or concerns for me this morning. Has been able to get up and urinate on her own but used a PureWick overnight. Worked with PT yesterday and did well, able to ambulate with support and a walker. Plans to work with PT again today prior to discharge. Denies fever, chills, chest pain, shortness breath, nausea, vomiting. Operative Date/Time/Diagnoses Date of procedure: 11/16/23 Pre-op diagnosis: Right knee osteoarthritis Post-op diagnosis: same Procedure & Clinicians Procedure: Right total knee arthroplasty (90210) Same procedure as scheduled: Yes Surgeon: Shravan Hercules Auto Emissions Technician: Ann Marie Ochoa Anesthesia Type: General, Peripheral nerve block and Local Operative Notes Estimated Blood Loss (mL): 250 Procedure in detail: Right Gap-Balanced Medial-Congruent Primary Total Knee Arthroplasty Implants: Breanne Persona Medial Congruent Total Knee Arthroplasty: Size 8 narrow Cruciate Retaining Femoral Component Size D Tibial Component with 14 x 30 stem extension Size 14 Medial Congruent Polyethylene Insert Unresurfaced Patella Discharge Providers Provider Discharge Date: 11/18/23 Primary care physician: Rui Piña MD Consults: 11/16/23 15:35 Consult to Discharge Planning Routine Comment: Consult to Occupational Therapy Evaluate & Treat Comment: Physician Instructions: Evaluate and treat Consult to Physical Therapy Evaluate & Treat Comment: Physician Instructions: post-op TKA protocol 11/18/23 08:18 Consult to Home Health Routine Comment: RN, PT, Bath Aide Reason For Exam: Home Health Services Discharge provider: Ann Marie Ochoa PA-C Summary Hospital Course Discharge Diagnosis: stable s/p R TKA Hospital Course: hospital course complicated by poor pain control post-operativley and difficulty mobilizing on POD#1. Exam Vital Signs (past 8 hours): Oxygen Delivery Method Room Air Oxygen Flow Rate 0 Narrative Exam Narrative: Sleeping comfortably in bed when I arrived this morning. Easily aroused. SCDs on and functioning, ice machine on the right knee. Resp Effort & Inspection: normal respiratory effort and able to speak in complete sentences Cardio Rate: regular rate Other: Brisk capillary refill. Skin Other: Meghan dressing is on and functioning. Dressing is clean, dry and intact. Neuro General: patient alert, patient awake and patient oriented x3 Extrem Other: 5/5 strength with DF, PF, EHL. Gross sensation intact throughout bilateral lower extremities. Calf soft and nontender bilaterally. Psych Appearance: grossly normal Speech and Movement: speech and movement normal Objective Labs 11/17/23 04:10 [facility] Medical History HLD (hyperlipidemia) Osteoarthritis Osteopenia Headache Vitamin D deficiency RLS (restless legs syndrome) Joint pain HTN (hypertension) Hyperglycemia Breast cancer (2007) GERD (gastroesophageal reflux disease) Surgical History Hx of bilateral mastectomy (2007) Social History household members: none Smoking Status: Never smoker alcohol intake: current Discharge Assessment & Plan Assessment and Plan Assessment: Stable status post right TKA Plan of Treatment: 1) plan to discharge to home today with friend. 2) continue multimodal pain management with ice to the knee for additional pain control. Has ice machine at home. Postop pain medications were sent today. 3) ASA b.i.d. for DVT prophylaxis. 4) Start outpatient physical therapy to work on range of motion and mobility. Referral to home health PT was sent. 5) Keep dressing intact, clean, dry until 2 week postop appointment. No soaking the incision site in pools or tubs. No topical ointments or creams to the incision site. 5) Follow up at [facility] orth[facility]ics in 2 weeks for a postop appointment and wound check. All patient's questions were answered, she demonstrates understanding and is in agreement with the plan. Call our office if any questions or concerns arise. Discharge Plan Discharge Plan Patient Disposition: Home Provider Discharge Comment: [email or web address] Discharge orders & Medications Discharge Orders: Discharge (Order); Ordered 11/18/23 Ordered By: Ann Marie Ochoa Prescriptions: New aspirin 81 mg Tablet,Delayed Release (Dr/Ec) 81 mg PO BID 30 Days Qty: 60 0RF docusate sodium 100 mg Capsule 100 mg PO BID PRN (Reason: constipation) Qty: 60 0RF ibuprofen 600 mg Tablet 600 mg PO Q6H Qty: 90 0RF ondansetron 4 mg Tablet,Disintegrating 4 mg PO Q8H PRN (Reason: Nausea) Qty: 10 0RF oxycodone 5 mg Tablet 5 mg PO Q4-6H PRN (Reason: Pain, Severe (7-10)) Qty: 25 0RF Continued amlodipine 2.5 mg tablet 2.5 mg PO DAILY simvastatin 20 mg tablet 20 mg PO DAILY lidocaine 5 % adhesive patch,medicated 1 patch Topical DAILY PRN (Reason: Pain) alendronate 35 mg Tablet 35 mg PO QWEEK Patient Comments: wednesdays omeprazole 20 mg capsule,delayed release(DR/EC) 20 mg PO DAILY gabapentin 600 mg Tablet Extended Release 24 Hr 300 mg PO DAILY Changed acetaminophen 500 mg Tablet 500 mg PO Q8H Qty: 90 1RF Discontinued aspirin 81 mg tablet,delayed release (DR/EC) 81 mg PO DAILY Patient Comments: patient states takes regular aspirin Follow up/Referrals: Rui Piña MD [Primary Care Provider] - Shravan Hercules MD [Physician] - (Follow up as scheduled at [facility] in 2 weeks. Appointment is scheduled for 11/29/23 at 2:00pm) Diet/Activity/Treatments Diet: Diet as Tolerated Activity: Weight bearing as tolerated. Work with outpatient physical therapy on gaining mobility and range of motion. Cold/Heat Therapy: Ice machine to the knee for additional pain control. Skin/Wound/Dressing Care Report to your healthcare provider any signs of infection, such as:: chills, fever, night sweats, unusual drainage and unusual redness Dressing: Keep dressing intact, clean and dry until 2 week post-op appointment. No soaking the incision site in pools or tubs. Visit Report/Discharge Packet Instructions: DI for Knee Replacement, DI for Prescription Opioid Use Stand Alone Forms: Patient Portal/API Discharge Data Primary Care Provider: Rui Piña Attending Provider: Shravan Hercules Quality VTE Deep Vein Thrombosis/Pulmonary Embolism Present on Admission: No
[2023-11-18] MEDS: OXYCODONE IR 5 MG TABLET PO ×2 (12:03→14:51)
[2023-11-18] MEDS: LIDOCAINE 5% PATCH 1 EACH TOP (12:04)
--- NOTE | 2023-11-18 13:22 | PT.IPTN ---
Current Diagnoses Unilateral primary osteoarthritis, right knee (11/16/23) Surgery Performed Operation Date: 11/16/23 11:45 Actual Procedures p Total Knee Arthroplasty(Right) - Shravan Hercules MD Physical Therapy Treatment Note M2 PT-IP Current Condition Start: 11/17/23 15:04 Freq: NEEDED Status: Active Protocol: Document 11/17/23 12:26 DLM (Rec: 11/17/23 15:20 DLM [id number]) Physical Therapy Current Condition Current Condition Evaluation Date 11/17/23 Treatment Diagnosis right total knee arthroplasty, impaired gait Onset Date 11/16/23 M3 PT-IP Subjective Start: 11/17/23 15:04 Freq: NEEDED Status: Active Protocol: Document 11/18/23 13:52 TS (Rec: 11/18/23 13:58 TS [id number]) Subjective Physical Therapy Visit Type Type Treatment Note Visit Start Time 13:22 Visit Stop Time 13:40 Number of SUPPLY AIDE Visits 2 Physical Therapy Visit Comments Patient Comments Pt found resting in bed, took some pain medication and is feeling better. Pt is agreeable to PT. Therapy Pain Assessment Pain When Pain Assessed During Mobility Pain Present Pain Present Pain Reported M4 PT-IP Mobility and Gait Start: 11/17/23 15:04 Freq: NEEDED Status: Active Protocol: Document 11/18/23 13:52 TS (Rec: 11/18/23 13:58 TS [id number]) PT-Bed Mobility Assessment Supine to Sit Supine to Sit Independent Sit to Supine Sit to Supine Independent Scooting Scooting to Edge of Bed Independent PT-Transfer Assessment Sit to and From Stand Sit to and from Stand Standby Assistance Equipment Transfer Assistive Device Gait Belt,Front Wheeled Walker Comments Mobility Comments Supine to sit Ind with BUE support with handrails. STS from bed SBA with FWW, pt demonstrates increased wbering on RLE this session. She ambulated ~100'SBA with FWW, had no buckling or LOB. Sit to supine into bed Ind with use of handrails. Pt was left in bed and all needs met. Gait Assessment Gait Gait Assistance Required: Standby Assistance Distance (Feet) 100 Assistive Devices Assistive Device Gait Belt,Front Wheeled Walker Gait Deviations General Gait Pattern Antalgic,Decreased Stride Length,Flexed Trunk,Step-to Gait Factors Limiting Gait Function Factors Limiting Gait Function Decreased Activity Tolerance, Decreased Sensation,Decreased Strength,Limited Range of Motion,Pain,Poor Balance Comments Gait Comments See mobility comments PT-Balance Assessment Sitting Balance and Reactions Static Sitting Balance Ability Good Dynamic Sitting Balance Ability Good Standing Balance and Reactions Static Standing Balance Ability Good Dynamic Standing Balance Ability Fair Device Used FWW M5 PT-IP Objective Assessments Start: 11/17/23 15:04 Freq: NEEDED Status: Active Protocol: Document 11/17/23 12:26 DLM (Rec: 11/17/23 15:20 DLM [id number]) Orientation Orientation/Cognition Level of Alertness Alert Orientation Name,Age,Birthday,Month,Date, Year,Day of Week,Place, Situation Language Function Ability Portuguese as Second Language Safety Awareness Decreased Safety Awareness Comments she needs repetition of new information, impulsive, needs reminders to slow down Gross Range of Motion Upper Extremity ROM Assessment Within Functional Limits Lower Extremity ROM Assessment Right Impaired Impairments knee 0-90 degrees actively Strength Upper Extremity Strength Assessment Within Functional Limits Lower Extremity Strength Assessment Right Impaired Hip extensor lag and difficulty with straight leg raise Knee ext sitting 3-/5, flex 4-/5 Ankle DF 5/5 Coordination Assessment Gross Coordination Gross Coordination WNL Sensation Assessment Sensation Gross Sensation Right LE Impaired Sensation Description Numbness Comments Sensation Comments patient reports her knee area is numb since surgery Muscle Tone Muscle Tone WNL Yes M6 PT-IP Treatment Start: 11/17/23 15:04 Freq: NEEDED Status: Active Protocol: Document 11/18/23 13:52 TS (Rec: 11/18/23 13:58 [id number]) Physical Therapy Treatment Education Education Provided Weight Bearing Status,Post-Op Packet,Safety M7 PT-IP Assessment and Plan Start: 11/17/23 15:04 Freq: NEEDED Status: Active Protocol: Document 11/18/23 13:52 TS (Rec: 11/18/23 13:58 [id number]) PT Summary Assessment and Plan Potential Rehabilitation Potential Fair Summary Impairments Pain,ROM,Strength,Balance, Sensation,Bed Mobility, Transfers,Gait,Activity Tolerance Progress Towards Goals Progressing Toward Goals Assessment Summary Jacquie is progressing well with her mobility. She is Ind for all bed mobility. She progresed her gait to ~100'SBA with FWW. She demonstrates increased ability to wber on RLE and is not hopping on LLE. PT is recommending home with 24/01 assist and HHPT. Goals Bed Mobility Goal Independent Transfer Goal Independent,Front Wheeled Walker Gait Goal Independent,Front Wheel Walker Gait Distance 150 feet Days to Meet Goals 2 Frequency of Treatment Frequency Of Treatment Twice a Day Treatment Plan Physical Therapy Treatment Plan Bed Mobility Training,Transfer Training,Gait Training, Therapeutic Exercise,Balance Retraining,Post Op Education, Discharge Planning,Hot or Cold Pack,Neuromuscular Re-ed Other Recommendations and Next Treatment reinforce fall risk education Focus Precautions Other Precautions fall risk needs reminders to slow down Weight Bearing Status Weight Bearing Status Weight Bear as Tolerated Recommendations To Nursing Amount of Assist Needed 1 Person Assist Discharge Recommendations PT Discharge Recommendations Home with 24/01 Assist Available,Home Health Other Discharge Recommendations Will conduct caregiver training due to pt's increase need for assistance this morning. Transportation Needs at Discharge Private Vehicle
--- NOTE | 2023-11-18 15:30 | PC.NURSE ---
Pt doing better this afternoon w/ decreased pain level. Orders for D/C recieved. Home instructions given to pt & several family members MARIO dsg to knee CDI. Pt med at 1500 for travel home Pt escoreted by staff & family via W/C to waiting vehicle D/C in stable post op status.
== END 2023-11-18 15:00 | disposition home or self-care (01) ==
LOC: OR 09:52 → AC 09:52
PROVIDERS: PCP Family Medicine; Referring Provider Family Medicine; Visit Provider Orthopaedic Surgery Adult Reconstructive Orthopaedic Surgery
PROC: 0SRC0JZ Replacement of Right Knee Joint with Synthetic Substitute, Open Approach (ICD-10-PCS; CPT 27447; principal; 2023-11-16 11:45)
DX: M25.561 Pain in right knee (principal); M17.11 Unilateral primary osteoarthritis, right knee; M21.061 Valgus deformity, not elsewhere classified, right knee; M25.761 Osteophyte, right knee
CPT/HCPCS: 27447; 36415; 73560; 82962; 85014; 85018; 97110; 97116; 97162; 97165; 97530; 97535; C1776; J0690; J1100; J2250; J2405; J2704; J3010

== ENCOUNTER → 2024-11-07 10:48 | Outpatient (CLI) | payer MEDICARE, OTHER, SELFPAY ==
[2023-11-16 16:27] VITALS: BMI 28.3
--- NOTE | 2024-11-07 10:52 | DI.RAD.S_ITS ---
PROCEDURE: XR SHOULDER RT MIN 2V INDICATIONS: PAIN IN SHOULDERS TECHNIQUE: Three views of the right shoulder were acquired. COMPARISON: [facility], CR, XR SHOULDER LT MIN 2V, 03/15/2023, 13:16. FINDINGS: Bones: Superior humeral subluxation is compatible chronic rotator cuff tear/impingement. Mild irregularity of the acromion is likely a malunified old fracture. Acromioclavicular and glenohumeral joints: Moderate acromioclavicular and glenohumeral degeneration noted. Soft tissues: No soft tissue swelling, calcification or mass. IMPRESSION: Findings compatible with chronic rotator cuff tear/impingement Moderate acromioclavicular and glenohumeral degeneration . Dictated by: Gary Johnson M.D. on 11/08/2024 at 6:10 Approved by: Gary Johnson M.D. on 11/08/2024 at 6:12
--- NOTE | 2024-11-07 10:52 | DI.RAD.S_ITS ---
PROCEDURE: XR SHOULDER LT MIN 2V INDICATIONS: PAIN IN SHOULDERS TECHNIQUE: Three views of the left shoulder were acquired. COMPARISON: [facility], CR, XR SHOULDER LT MIN 2V, 03/15/2023, 13:16. FINDINGS: Bones: There are no osseous abnormalities. Acromioclavicular and glenohumeral joints: Moderate acromioclavicular and severe glenohumeral degeneration has progressed from 2022 Soft tissues: No soft tissue swelling, calcification or mass. IMPRESSION: Degeneration Dictated by: Gary Johnson M.D. on 11/08/2024 at 6:12 Approved by: Gary Johnson M.D. on 11/08/2024 at 6:13
== END ==
PROVIDERS: PCP Family Medicine; Referring Provider Family Medicine; Visit Provider Family Medicine
DX: M19.011 Primary osteoarthritis, right shoulder (principal); M19.012 Primary osteoarthritis, left shoulder; M25.512 Pain in left shoulder; M25.511 Pain in right shoulder
CPT/HCPCS: 73030